=== PATIENT | male | born 1970 | race Caucasian/White ===

== ENCOUNTER 2023-04-28 21:52 | Outpatient (OUT) | payer OTHER, SELFPAY | END 2023-04-28 21:53 | PROVIDERS: PCP Nurse Practitioner; Visit Provider Nurse Practitioner | DX: G47.33 Obstructive sleep apnea (adult) (pediatric) (principal); R06.83 Snoring; E66.9 Obesity, unspecified; Z68.36 Body mass index [BMI] 36.0-36.9, adult; I49.9 Cardiac arrhythmia, unspecified; I11.0 Hypertensive heart disease with heart failure; I50.23 Acute on chronic systolic (congestive) heart failure; F17.210 Nicotine dependence, cigarettes, uncomplicated; I48.91 Unspecified atrial fibrillation; I43 Cardiomyopathy in diseases classified elsewhere | CPT/HCPCS: 95810 ==

== ENCOUNTER 2023-05-11 07:02 | Outpatient (OUT) | payer OTHER, SELFPAY ==
--- NOTE | 2023-05-11 07:43 | CA_ITS ---
Patient: GENOVEVA DENT Exam Date: 05/11/2023 : 1970 Gender:M Ordering : FABIAN BURNETTE Admission #: [id number] Family : Order #: [id number] CLICK HERE TO VIEW EXAM ECHOCARDIOGRAM REPORT PROCEDURE: CA ECHO LIMITED INDICATIONS: Acute on chronic heart failure, Paroxysmal Afib COMPARISON: None. DESCRIPTION: Limited ECHOCARDIOGRAM Real-time transthoracic echocardiography with 2D and M-mode performed. QUALITY: Technical quality was good. LEFT VENTRICLE: Normal chamber size. Normal left ventricular wall thickness. LV EF: Global left ventricular systolic function is moderately decreased. Visual estimation of left ventricular ejection fraction is 30-35%. Global hypokinesis with regional variability. LEFT ATRIUM: Severe dilatation. RIGHT ATRIUM: Mild dilatation. RIGHT VENTRICLE: Normal chamber size. Normal right ventricular systolic function. TRICUSPID VALVE: Normal mobility and thickness. MITRAL VALVE: Normal mobility and thickness. There is no mitral annular calcification. AORTIC VALVE: Normal trileaflet appearance. No visible sclerosis. Normal leaflet mobility. AORTIC ROOT: Normal diameter and appearance. PULMONIC VALVE: Normal thickness and mobility. PERICARDIUM: No evidence of pericardial effusion. IVC: Collapses with inspirations. Normal size CONCLUSION: Global left ventricular systolic function is moderately reduced; visually estimated ejection fraction is 30 to 35%. Biatrial enlargement. The right ventricle is normal in size and systolic function. A limited echocardiogram was performed. Adult Echocardiography Procedure Report Left Ventricle LVEDD (3.7 - 5.6 cm): 5.11 cm LVESD (2.2 - 4.0 cm): 3.98 cm LVIVS thickness (0.6 - 1.2 cm): 0.93 cm LVPW thickness (0.5 - 1.0 cm): 0.89 cm LVOT Diameter 2.32 cm Left Ventricular Ejection Fraction: 31.13 % Left Atrium LA Volume Index (2D A2C): 56.45 ml/m2 Left Atrium Systolic Dimension: 5.04 cm Mitral Valve Right Ventricle RV Internal Diastolic Dimension: 3.88 cm Aorta AO Root Diam: 3.57 cm Ascending Ao Diam: 3.04 cm Aortic Valve Tricuspid Valve Pulmonic Valve Right Atrium Right Atrium Systolic Pressure: 50.11 ml, 50.11 ml Dictated by: Franny Louise M.D. on 05/13/2023 at 14:23 Approved by: Franny Louise M.D. on 05/13/2023 at 14:25
== END 2023-05-11 07:03 ==
LOC: CARD 07:02
PROVIDERS: PCP Nurse Practitioner; Visit Provider Nurse Practitioner
DX: I50.23 Acute on chronic systolic (congestive) heart failure (principal); I48.0 Paroxysmal atrial fibrillation
CPT/HCPCS: 93308

== ENCOUNTER 2023-05-20 14:51 | Outpatient (OUT) | payer OTHER, SELFPAY ==
[2023-05-20 16:11] LABS: Anion Gap 12.7; Calcium 9.2 mg/dL (8.5-10.1); Chloride 105 mmol/L (98-107); Estimated GFR (African America >60 (>=60); Estimated GFR (Non-African Ame >60 (>=60); Glucose 87 mg/dL (74-106); Potassium 3.7 mmol/L (3.5-5.1); Sodium 140 mmol/L (136-145)
== END 2023-05-20 14:52 | disposition home or self-care (01) ==
LOC: LAB 14:53
PROVIDERS: Visit Provider Nurse Practitioner
DX: I48.0 Paroxysmal atrial fibrillation (principal); I43 Cardiomyopathy in diseases classified elsewhere; I11.0 Hypertensive heart disease with heart failure; I50.23 Acute on chronic systolic (congestive) heart failure
CPT/HCPCS: 36415; 80048

== ENCOUNTER 2023-07-02 15:16 | Outpatient (OUT) | payer OTHER, SELFPAY ==
[2023-07-02 15:59] LABS: Anion Gap 12.4; BUN Creatinine Ratio 11.4; Calcium 8.5 mg/dL (8.5-10.1); Chloride 103 mmol/L (98-107); Estimated GFR (African America >60 (>=60); Estimated GFR (Non-African Ame >60 (>=60); Glucose 125 mg/dL (74-106); Potassium 3.4 mmol/L (3.5-5.1); Sodium 139 mmol/L (136-145)
== END 2023-07-02 15:17 | disposition home or self-care (01) ==
LOC: LAB 15:17
PROVIDERS: Nurse Practitioner; Visit Provider Nurse Practitioner
DX: I48.0 Paroxysmal atrial fibrillation (principal); I50.23 Acute on chronic systolic (congestive) heart failure; I11.0 Hypertensive heart disease with heart failure; I43 Cardiomyopathy in diseases classified elsewhere
CPT/HCPCS: 36415; 80048

== ENCOUNTER 2023-07-28 14:14 | Outpatient (OUT) | payer OTHER, SELFPAY ==
[2023-07-28 14:39] LABS: Basophils Absolute Auto 0.1 10^3/uL (0.0-0.1); Basophils Percent Auto 0.7 % (0.2-2.0); Eosinophils Absolute Auto 0.4 10^3/uL (0.0-0.7); Eosinophils Percent Auto 5.2 % (0.9-7.0); Hematocrit 51.2 % (42.0-54.0); Immature Granulocytes Abs Auto 0.04 10^3/uL (0.00-0.03); Immature Granulocytes Pct Auto 0.6 % (0.0-0.5); Lymphocytes Absolute Auto 1.9 10^3/uL (1.2-3.8); Lymphocytes Percent Auto 27.7 % (20.5-60.0); Mean Corpuscular HGB Conc 33.2 g/dL (29.9-35.2); Mean Corpuscular Hemoglobin 30.2 pg (25.9-34.0); Mean Corpuscular Volume 91.1 fL (80.0-94.0); Mean Platelet Volume 9.7 fL (9.5-13.5); Monocytes Absolute Auto 0.6 10^3/uL (0.3-0.8); Monocytes Percent Auto 9.3 % (1.7-12.0); Neutrophils Absolute Auto 3.8 10^3/uL (1.4-6.5); Neutrophils Percent Auto 56.5 % (43.0-75.0); Platelet Count 149 10^3/uL (150-450); Red Blood Count 5.62 10^6/uL (4.70-6.10); Red Cell Distribution Width 13.7 % (11.0-15.0); White Blood Count 6.7 10^3/uL (4.0-11.0)
[2023-07-28 15:05] LABS: Anion Gap 14.5; BUN Creatinine Ratio 19.5; Calcium 9.1 mg/dL (8.5-10.1); Carbon Dioxide 24.7 mmol/L (21.0-32.0); Chloride 105 mmol/L (98-107); Estimated GFR (African America >60 (>=60); Estimated GFR (Non-African Ame >60 (>=60); Glucose 88 mg/dL (74-106); Potassium 4.2 mmol/L (3.5-5.1); Sodium 140 mmol/L (136-145)
== END 2023-07-28 14:15 | disposition home or self-care (01) ==
LOC: LAB 14:16
PROVIDERS: Visit Provider Internal Medicine Cardiovascular Disease
DX: I48.0 Paroxysmal atrial fibrillation (principal)
CPT/HCPCS: 36415; 80048; 85025

== ENCOUNTER 2023-11-03 20:52 | Outpatient (OUT) | payer OTHER, SELFPAY | END 2023-11-03 20:53 | disposition home or self-care (01) | LOC: SLEEP 20:52 | PROVIDERS: PCP Nurse Practitioner; Visit Provider Nurse Practitioner | DX: G47.33 Obstructive sleep apnea (adult) (pediatric) (principal) | CPT/HCPCS: 95811 ==

== ENCOUNTER 2024-06-04 09:25 | Outpatient (OUT) | payer OTHER, SELFPAY ==
[2024-06-04 10:23] LABS: Basophils Percent Auto 0.5 % (0.2-2.0); Eosinophils Absolute Auto 0.3 10^3/uL (0.0-0.7); Eosinophils Percent Auto 4.9 % (0.9-7.0); Hematocrit 50.2 % (42.0-54.0); Hemoglobin 16.8 g/dL (14.0-18.0); Immature Granulocytes Abs Auto 0.02 10^3/uL (0.00-0.03); Immature Granulocytes Pct Auto 0.3 % (0.0-0.5); Lymphocytes Absolute Auto 1.5 10^3/uL (1.2-3.8); Lymphocytes Percent Auto 25.7 % (20.5-60.0); Mean Corpuscular HGB Conc 33.5 g/dL (29.9-35.2); Mean Corpuscular Hemoglobin 30.6 pg (25.9-34.0); Mean Corpuscular Volume 91.4 fL (80.0-94.0); Mean Platelet Volume 10.4 fL (9.5-13.5); Monocytes Absolute Auto 0.8 10^3/uL (0.3-0.8); Monocytes Percent Auto 13.6 % (1.7-12.0); Neutrophils Absolute Auto 3.3 10^3/uL (1.4-6.5); Platelet Count 144 10^3/uL (150-450); Red Blood Count 5.49 10^6/uL (4.70-6.10); Red Cell Distribution Width 12.7 % (11.0-15.0)
[2024-06-04 10:56] LABS: Alanine Aminotransferase 37 U/L (16-63); Albumin Level 3.4 g/dL (3.4-5.0); Alkaline Phosphatase 97 U/L (46-116); Anion Gap 10.8; Aspartate Amino Transferase 13 U/L (15-37); BUN Creatinine Ratio 20.5; Bilirubin Total 0.4 mg/dL (0.2-1.0); Calcium 8.5 mg/dL (8.5-10.1); Carbon Dioxide 27.2 mmol/L (21.0-32.0); Chloride 108 mmol/L (98-107); Chol HDL Ratio 2.8; Cholesterol 97 mg/dL (<=200); Estimated GFR (African America >60 (>=60); Estimated GFR (Non-African Ame >60 (>=60); Globulin 3.4 g/dL; Glucose 95 mg/dL (74-106); HDL Cholesterol 35 mg/dL (40-60); Sodium 142 mmol/L (136-145); Total Protein 6.8 g/dL (6.4-8.2); Triglycerides 50 mg/dL (<=150)
== END 2024-06-04 09:26 | disposition home or self-care (01) ==
LOC: LAB 09:28
PROVIDERS: PCP Nurse Practitioner; Visit Provider Nurse Practitioner
DX: I11.0 Hypertensive heart disease with heart failure (principal); I43 Cardiomyopathy in diseases classified elsewhere; I48.0 Paroxysmal atrial fibrillation
CPT/HCPCS: 36415; 80053; 80061; 85025

== ENCOUNTER 2024-10-12 10:17 | Emergency (ER) | payer BC, SELFPAY ==
[2024-10-12 10:25] VITALS: BP 135/97; PULSE 82; TEMP 36.4; O2SAT 100; BMI 34.9
--- OUTSIDE RECORDS SUMMARY | 2024-10-12 10:50 | XMS_ITS | CCD ---
Author Organization [facility] Care Team Providers Care Multi Share Program Coordinator Name Role Phone REQUEST, DR NONE LISTED Primary Care Unavaila ble KARL ., KHUSHI Admitting Unavailable KARL ., KHUSHI Attending Unavailable ZIEBER, DR PRATIBHA Watson Consulting Unavailable KATKO, BRIGITTE Lopez Consulting Unavailable KARL ., KHUSHI Consulting Unavailable BARAZI, KEILY Consulting Unavailable RASTEGAR, ADELAIDA Consulting Unavailable VASILE, FABIAN Admitting Unavailable VASILE, FABIAN Attending Unavailable REQUEST, NONE LISTED Primary Care Unavaila ble VASILE, FABIAN Admitting Unavailable VASILE, FABIAN Attending Unavailable REQUEST, NONE LISTED Primary Care Unavaila ble VASILE, FABIAN Consulting Unavailable JOHN, WALTER Referring Unavailable JOHN, WALTER Referring Unavailable JOHN, WALTER Referring Unavailable JOHN, WALTER Referring Unavailable BARAZI, KEILY Attending Unavailable JOHN, WALTER Attending Unavailable JOHN, WALTER Attending Unavailable JOHN, WALTER Admitting Unavailable JOHN, WALTER Attending Unavailable BARAZI, KEILY Attending Unavailable VASILE, FABIAN Attending Unavailable Problems Problem Classification Problem Date Documented Da te Episodic/Chronic Cardiac dysrhythmias (9 sources) Unspecified atrial fibrillation; Translations: [Paroxysmal atrial fibrillation] Onset: 03-17-2023 Chronic Congestive heart failure; nonhypertensive (7 sources) Acute on chronic systolic (congestive) heart failure; Translations: [Acute systolic (congestive) heart failure] Onset: 03-23-2023 Chronic Hypertension with complications and secondary hypertension (3 sources) Hypertensive heart disease with heart failure; Translations: [HTN HEART DISEASE W/HEART FAIL] Onset: 03-23-2023 Chronic Other nutritional; endocrine; and metabolic disorders (1 source) Morbid (severe) obesity due to excess calories; Translations: [MORBID SEVERE OBES D/T EXCESS KEE] Onset: 03-23-2023 Chronic Other nutritional; endocrine; and metabolic disorders (1 source) Body mass index (BMI) 33.0-33.9, adult; Translations: [BODY MASS INDEX BMI 33.0-33.9 ADULT] Onset: 03-23-2023 Chronic Tawny-; endo-; and myocarditis; cardiomyopathy (except that caused by tuberculosis or sexually transmitted disease) (2 sources) Cardiomyopathy in diseases classified elsewhere; Translations: [Cardiomyopathy in diseases classified elsewhere] Onset: 03-30-2023 Chronic Regional enteritis and ulcerative colitis (1 source) Ulcerative colitis, unspecified, without complications; Translations: [ULCERATIVE COLITIS UNS W/O COMP] Onset: 03-23-2023 Chronic Substance-related disorders (1 source) Nicotine dependence, cigarettes, uncomplicated; Translations: [NICOTINE DEPEND CIGARETTES UNCOMP] Onset: 03-23-2023 Chronic Unclassified (2 sources) Longstanding persistent atrial fibrillation; Translations: [Longstanding persistent atrial fibrillation] Onset: 05-21-2023 Results Test Name Value Interpretation Reference Range Facility Office Visiton 06-03-2024 Follow-up visit [id number] Aiden Dent [facility] 1970 [facility] Provider Department Center 06/03/2024 FABIAN DOMINIQUE KASHIF [facility] Family History Problem Relation Age of Onset Hypertension Mother Diabetes Mother Coronary artery disease Father Cancer Father Family Status - Relation Status Age at Mother Father Level of Service:16973 OK OFFICE/OUTPATIENT ESTABLISHED LOW MDM 20 MIN Normal [facility] 36on 11-30-2023 36 I would have him restart coreg, if he did not tolerate the 6.25mg BID dose previously we can start 3.125mg Bid instead. diastolic consistently elevated, his goal BP is 130/80 or less Normal [facility] Office Visiton 11-10-2023 Follow-up visit [id number] Aiden Dent [facility] 1970 Date Provider Department Center 11/10/2023 WALTER GUZMAN KASHIF [facility] Family History Problem Relation Age of Onset Hypertension Mother Diabetes Mother Coronary artery disease Father Cancer Father Family Status - Relation Status Age at Mother Father Level of Service:42637 [place] OFFICE/OUTPATIENT ESTABLISHED LOW MDM 20 MIN Normal [facility] Office Visiton 09-09-2023 Follow-up visit [id number] Aiden Dent [facility] 1970 [facility] Provider Department Center 09/09/2023 KEILY TOBAR KASHIF [facility] Family History Problem Relation Age of Onset Hypertension Mother Diabetes Mother Coronary artery disease Father Cancer Father Family Status - Relation Status Age at Mother Father Level of Service:31917 [place] OFFICE/OUTPATIENT ESTABLISHED MOD MDM 30-39 MIN Normal [facility] Telephoneon 09-03-2023 Telephone [id number] Aiden Dent ul M 1970 M Date Provider Department Center 09/03/2023 155Tex-TITO MIKALA [facility] Family History Problem Relation Age of Onset Hypertension Mother Diabetes Mother Coronary artery disease Father Cancer Father Family Status - Relation Status Age at Mother Father Normal [facility] Telephoneon 08-20-2023 Telephone [id number] Aiden Dent ul M 1970 M Date Provider Department Center 08/20/2023 1557-HISAguilar MIKALA [facility] Family History Problem Relation Age of Onset Hypertension Mother Diabetes Mother Coronary artery disease Father Cancer Father Family Status - Relation Status Age at Mother Father Normal [facility] HPon 08-12-2023 HP H&P reviewed. The patient was examined and there are no changes to the H&P. Afib ablation would require placement of multiple catheters in the heart under moderate sedation which will include diagnostic catheters, ICE catheters and ablation catheters. The risk of the procedures can be described as minor and major minor complications being discomfort in the groin area, bleeding, infection and vascular complications at this fistula formation, pseudoaneurysm, nerve injury. Major complications would include catheter induced cardiac perforation leading to tamponade/ pericardial effusion which may or may not require surgical intervention. Other complications are phrenic nerve injury leading to paralysis, thromboembolism including pulmonary and systemic event leading to stroke or endorgan injury or . There could be a possibility of catheter induced valve entrapment which may require surgical intervention and valve replacement. Given that these procedures are performed under x-ray, they could be acute or long-term side effects from radiation. Gven the comorbidities, the likelihood of attaining sinus rhythm would be ~75% and reiterated the importance of weight loss and an exercise regimen as well as treatment of sleep apnea which would be beneficial in long-term maintenance of sinus rhythm based on data from LEGACY and CARDIOFIT trials. Overall the risk of these complications ranged anywhere from 1-5%. Patient verbalized understanding and have agreed to proceed with the procedure. Normal [facility] NURSNOTEon 08-12-2023 NURSNOTE Ekg is at bedside Normal [facility] POCT GLUCOSE METER UNSOLICIT ED RESULTSon 08-12-2023 Glucose [Mass/Vol] 96 mg/dL Normal 70-105 [facility] Comment on above: Order Comment: Waive d Testing in the ED is performed under the ED CLIA certificate #[id number]. Result Comment: ltol les Performed By: #### L [id number] ####[facility] (BEAKER)[address] [place] [address] PROTIME-INRon 08-12-2023 INR IN PPP BY COAGULATION ASSAY 0.92 Normal 0.90-1.10 [facility] Comment on above: Result Comment: ACCC P RECOMMENDED INR FOR WARFARIN THERAPY CONDITION INR PROPHYLAXIS OF VENOUS THROMBOSIS 2-3 (HIGH-RISK SURGERY) TREATMENT OF VENOUS THROMBOSIS 2-3 TREATMENT OF PULMONARY EMBOLISM 2-3 PREVENTION OF SYSTEMIC EMBOLISM: 2-3 ACUTE MYOCARDIAL INFARCTION TISSUE HEART VALVES VALVULAR HEART DISEASE ATRIAL FIBRILLATION RECURRENT SYSTEMIC EMBOLISM MECHANICAL HEART VALVE 2.5-3.5 FROM: ORAL ANTICOAGULANTS. MECHANISM OF ACTION, CLINICAL EFFECTIVENESS, AND OPTIMAL THERAPEUTIC RANGE. CHEST 1995;108:231S-246S. Performed By: #### L [id number] ####[facility] (BEAKER)[address] [place] [address] PROTHROMBIN TIME (PT) IN PPP BY COAGULATION ASSAY 12.4 Seconds Normal 12.3-14.8 [facility] Comment on above: Performed By: #### L [id number] ####[facility] (YARELI)[address] [place] [address] [id number] 08-06-2023 [id number] ARRIVAL TIME 0700 MEDICATIONS TO TAKE DAY OF SURGERY WITH SIP OF WATER AMIODARONE CARVEDILOL HOLD ELIQUIS X 48 HRS STOP 08/10 IF YOU ARE GOING HOME AFTER YOUR SURGERY OR PROCEDURE, FOR YOUR SAFETY, YOUR SURGERY WILL BE CANCELLED IF BOTH OF THE FOLLOWING ARE NOT AVAILABLE: An adult limousine driver over the age of 18, that can receive information about your care after surgery, and drive you home. A responsible adult to stay with you for 24 hours in case of an emergency. Can be same as above. The highest risk of complications is within the first 24 hours after sedation/anesthesia. Nothing to eat or drink after midnight the night before surgery. This includes gum, candy, mints, and lozenges. No alcohol, marijuana, or tobacco products including vaping for 24 hours. Please brush your teeth; don't swallow the toothpaste or water. If you use dentures, wear them but do not use paste. Please leave any other removable dental hardware at home. Do not put in contact lenses. Do not wear perfume, make-up, nail setswana, or lotions on the day of your surgery or procedure. Follow skin-prep/wipe instructions as below if required. Bring with you: *Insurance card *Photo ID *Medication list *Co-pay for visit/prescriptions If applicable: *Rescue inhalers *Green bracelet from lab *CPAP or BiPAP machine, if staying overnight *Any braces, splints, or equipment ordered preoperatively *Remote controls for implanted devices Leave at home: *Purse/Wallet/Le- unless needed for co-pay *Cell phone (can leave with family/friend or place in locker if needed) *Jewelry (including piercings and wedding bands) *If not possible, ask the person who is waiting with you to keep them Children under the age of 12 will not be allowed into patient care areas. We will call you between 3pm and 4pm the day before your surgery to give you an arrival time. If you do not receive this call, have any questions, or need to make any changes, please call [phone]. Notify your surgeon if you develop any illness such as a cold, cough, fever, sore throat or vomiting between now and your surgery. Thank you for entrusting us with your care. [facility] Surgical Services Team Normal [facility] CTA CHEST W AND/OR WO IV CON TRASTon 07-30-2023 CTA CHEST W AND/OR WO IV CONTRAST CTA CHEST W AND/OR WO IV CONTRAST 07/30/2023 1:50 PM CLINICAL INDICATIONS: Paroxysmal atrial fibrillation. Preablation procedure. PROTOCOL: Gated cardiac CTA CONTRAST: 100 mL Omnipaque 350. TECHNIQUE: Multidetector CT axial slices of the chest were obtained with IV contrast. Multiplanar reformats were performed and viewed on a separate workstation and reviewed to further define anatomy and possible pathology. All CT scans at this facility use dose modulation, iterative reconstruction, and/or weight based dosing when appropriate to reduce radiation dose to as low as reasonably achievable. COMPARISON: None. FINDINGS: Lower neck: no supraclavicle adenopathy. Vessels: Pulmonary arteries appeared grossly unremarkable. No atherosclerotic changes in the aorta. and coronary arteries. Mediastinum and Татьяна: Within normal limits. Heart: Normal size. No pericardial effusion. Airways: Within normal limits Lungs: Mild dependent atelectasis. Small pneumatocele in the right middle lobe. Pleura: Within normal limits. Chest Wall: Within normal limits. Upper Abdomen: Small cysts are seen in the dome of the left lobe of the liver. Clips at the gallbladder fossa from prior cholecystectomy. Bones: Mild bony spurring in the lower thoracic spine suggesting mild spondylosis. 3-D volume rendered images of the left atrium, left atrial appendage and pulmonary veins are obtained in various projections. There is normal size and configuration of the left atrium. The left atrium measures 7 x 3.6 cm in maximum transverse dimensions. The ostium of the left atrial appendage is 1.2 cm in diameter. The left atrial appendage is 3.2 cm in length. No filling defects are seen. The left superior pulmonary vein measures 1.1 cm in diameter and first branch is approximately 3.4 cm from the ostium. The left inferior pulmonary vein ostium is 1.3 cm in diameter. The first branch is approximately 2.8 cm from the ostium. The right superior pulmonary vein ostium is 1.6 cm in diameter. The first branch is approximately 3.2 cm from the ostium. The right inferior pulmonary vein is approximately 2 cm in diameter and first branch is approximately 2.4 cm from the ostium. The contrast-filled esophagus is seen immediately posterior to the left atrium and adjacent to the ostium of the left inferior pulmonary vein. IMPRESSION: Mild dependent atelectasis and small pneumatocele in the right middle lobe. Evidence of prior cholecystectomy. 6 small cyst at the dome of the left lobe of the liver. Normal left atrium size and configuration with 2 pulmonary veins seen on each side with the measurements described above. No filling defects in the left atrial appendage. The esophagus in close proximity to the ostium of the left inferior pulmonary vein. Electronically signed: Elaine Tan. Normal [facility] Comment on above: Order Comment: Joy granados schedule prior to Aug 12. Would like to coordinate with TTE if possible 07-28-2023 29 Addended by: KEILY XIE on: 08/09/2023 11:41 PM Modules accepted: Level of Service [facility] 07-28-2023 [facility] Electrophysiology Consult Note Reason for visit: Afib/ CMP, AF ablation HP and consent HPI: Walter Dent is a 52 y.o. year old with past medical history of Afib with Atrial fibrillation with associated cardiomyopathy which has improved to.30 to 35%, with LA severely dilated and right atrium mildly dilated. 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 Patient is asymptomatic and denies chest pain, shortness of breath, palpitations, lightheadedness, dizziness PMH: smoker, drinker, AF, HTN, HFrEF Medications: amiodarone 200mg daily, eliquis 5mg bid, coreg 6.25mg bid, lisinopril 2.5mg daily, aldactone 25mg daily PMH: Past Medical History: Diagnosis Date Abnormal ECG Arrhythmia Atrial fibrillation (CMS/HCC) CHF (congestive heart failure) (CMS/HCC) PSH: Past Surgical History: Procedure Laterality Date CHOLECYSTECTOMY HERNIA REPAIR KNEE SURGERY SH: Social Determinants of Health Tobacco Use: High Risk (07/07/2023) Patient History Smoking Tobacco Use: Every Day Smokeless Tobacco Use: Former Passive Exposure: Not on file Alcohol Use: Not on file Financial Resource Strain: Not on file Food Insecurity: Not on file Transportation Needs: Not on file Physical Activity: Not on file Stress: Not on file Social Connections: Not on file Intimate Partner Violence: Not on file Depression: Not on file Housing Stability: Not on file Allergies: No Known Allergies Weight: 108kg Visit Vitals BP 120/86 (BP Location: Left arm, Patient Position: Sitting) Pulse 74 Ht 1.702 m (5' 7 ) Wt 108 kg (238 lb) SpO2 95% BMI 37.28 kg/m??? Smoking Status Every Day BSA 2.26 m??? Meds: Current Outpatient Medications on File Prior to Visit Medication Sig Dispense Refill amiodarone (Pacerone) 200 mg tablet Take 2 tablets (400 mg) by mouth in the morning and at bedtime for 14 days, THEN 1 tablet (200 mg) in the morning. (Patient taking differently: Take 1 tablet in the morning, and 1 tablet in the evening.) 236 tablet 0 carvedilol (Coreg) 6.25 mg tablet Take 1 tablet (6.25 mg) by mouth with breakfast and with evening meal. 180 tablet 3 Eliquis 5 mg tablet Take 1 tablet (5 mg) by mouth in the morning and at bedtime. 180 tablet 3 empagliflozin (Jardiance) 10 mg Take 1 tablet (10 mg) by mouth in the morning. 90 tablet 3 lisinopril 2.5 mg tablet Take 1 tablet (2.5 mg) by mouth in the morning. 90 tablet 3 spironolactone (Aldactone) 25 mg tablet Take 1 tablet (25 mg) by mouth in the morning. 90 tablet 3 No current facility-administered medications on file prior to visit. ROS: Review of Systems HENT: Positive for congestion. Respiratory: Positive for shortness of breath. Neurological: Positive for dizziness and light-headedness. All other systems reviewed and are negative. Physical Exam: Constitutional General Appearance: well-nourished, well-developed, appears stated age Level of Distress: comfortable Psychiatric Mental Status: alert, normal affect Orientation: oriented to time, place, and person Insight: good judgement Eyes Lids and Conjunctivae: non-injected, no xanthelasma ENMT Ears: no lesions on external ear Nose: no lesions on external nose Oropharynx: no cyanosis, no pallor Neck Neck: supple, trachea midline Carotid Arteries: bilateral normal upstroke, no bruits Jugular Veins: normal jugular venous pressure Thyroid: not enlarged Lungs Respiratory Effort: unlabored Chest Exam: normal curvature, no thoracic deformity Auscultation: clear, no wheezing, no rales, no rhonchi Cardiovascular Rate And Rhythm: regular Heart Sounds: normal S1, normal s2, no gallop Systolic Murmur: not heard Diastolic Murmur: not heard Extremities: no cyanosis, no edema, no peripheral signs of emboli Peripheral Pulses Radial Pulse: normal Abdomen Inspection and Palpation: soft, non distended, no bruit, non tender Musculoskeletal Inspection: no joint swelling Neurologic Gait: normal gait Skin Inspection and Palpation: warm and dry Nails: no clubbing Labs: @LABRESULTS@ No results found for: CHOLESTEROL TOTAL, HDL, LDL CALC, LDL DIRECT, TRIGLYCERIDES, TSH, T3 TOTAL, T4 TOTAL, THYROID PEROXIDASE AB, BNP, BNP, BNP EKG: Encounter Date: 04/09/23 ECG 12 lead Result Value Ventricular Rate 84 Atrial Rate 84 OK Interval 230 QRS DURATION 96 QT Interval 378 QTC CALCULATION(BAZETT) 446 P Rialto 39 R-Rialto -3 T Wave Rialto 15 Impression Sinus rhythm with 1st degree A-V block with occasional Premature ventricular complexes and Premature atrial complexes Otherwise normal ECG When com (more content not included)... Normal [facility] Office Visiton 07-28-2023 Follow-up visit [id number] Aiden Dent [facility] 1970 M Date Provider Department Center 07/28/2023 1596-KEILY XIE [facility]ARD [facility] Family History Problem Relation Age of Onset Hypertension Mother Diabetes Mother Coronary artery disease Father Cancer Father Family Status - Relation Status Age at Mother Father Level of Service:[id number] OK OFFICE/OUTPATIENT ESTABLISHED HIGH MDM 40-54 MIN Normal [facility] Prep for Procedureon 023 Prep for Procedure [id number] Aiden Dent [facility] 1970 M Date Provider Department Center 07/08/2023 1987-OSKAR AMBROCIO [facility] Family History Problem Relation Age of Onset Hypertension Mother Diabetes Mother Coronary artery disease Father Cancer Father Family Status - Relation Status Age at Mother Father Normal [facility] Office Visiton 07-07-2023 Follow-up visit [id number] Aiden Dent ul M 1970 M Date Provider Department Center 07/07/2023 WALTER GUZMAN [facility] Family History Problem Relation Age of Onset Hypertension Mother Diabetes Mother Coronary artery disease Father Cancer Father Family Status - Relation Status Age at Mother Father Level of Service:08105 OK OFFICE/OUTPATIENT NEW HIGH MDM 60-74 MINUTES Reason for Visit and Comments: Follow-up [[id number]] Normal [facility] CBC AUTO DIFFon 03-31-2023 BASO # 0.1 103/ul Normal 0.0-0.1 [facility] Comment on above: Performed By: #### B MP #### [facility] [address] [address] [address] Dana Levine Basophils/100 WBC (Bld) 0.6 % Normal 0.2-2.0 [facility] Comment on above: Performed By: #### B MP #### [facility] [address] [address] [address] Dana Levine EO # 0.2 103/ul Normal 0.0-0.7 [facility] Comment on above: Performed By: #### B MP #### [facility] [address] [address] [address] Dana Levine Eosinophils/100 WBC (Bld) 2.9 % Normal 0.9-7.0 [facility] Comment on above: Performed By: #### B MP #### [facility] [address] [address] [address] Dana Levine Erythrocyte distribution width (RBC) [Ratio] 12.5 % Normal 11.0-15.0 [facility] Comment on above: Performed By: #### B MP #### [facility] [address] [address] [address] Dana Levine Hematocrit (Bld) [Volume fraction] 52.8 % Normal 42.0-54.0 [facility] Comment on above: Performed By: #### B MP #### [facility] [address] [place] [address] Dr. Dana Levine Hemoglobin (Bld) [Mass/Vol] 17.7 g/dL Normal 14.0-18.0 [facility] Comment on above: Performed By: #### B MP #### [facility] [address] [place] [address] Dr. Dana Levine IG # 0.02 10e3/ul Normal 0.00-0.03 [facility] Comment on above: Performed By: #### B MP #### [facility] [address] [place] [address] Dr. Dana Levine IG % 0.2 % Normal 0.0-0.5 [facility] Comment on above: Performed By: #### B MP #### [facility] [address] [place] [address] Dr. Dana Levine LYMPH # 2.5 103/ul Normal 1.2-3.8 [facility] Comment on above: Performed By: #### B MP #### [facility] [address] [place] [address] Dr. Dana Levine Lymphocytes/100 WBC (Bld) 31.5 % Normal 20.5-60.0 [facility] Comment on above: Performed By: #### B MP #### [facility] [address] [place] [address] Dr. Dana Levine MANUAL DIFF REQ NO Normal [facility] Comment on above: Performed By: #### B MP #### [facility] [address] [place] [address] Dr. Dana Levine MCH (RBC) [Entitic mass] 28.9 pg Normal 25.9-34.0 [facility] Comment on above: Performed By: #### B MP #### [facility] [address] [place] [address] Dr. Dana Levine MCHC (RBC) [Mass/Vol] 33.5 g/dL Normal 29.9-35.2 [facility] Comment on above: Performed By: #### B MP #### [facility] [address] [address] [address] Dana Levine MCV (RBC) [Entitic vol] 86.1 fL Normal 80.0-94.0 [facility] Comment on above: Performed By: #### B MP #### [facility] [address] [address] [address] Dana Levine MONO # 0.7 103/ul Normal 0.3-0.8 [facility] Comment on above: Performed By: #### B MP #### [facility] [address] [address] [address] Dana Levine Monocytes/100 WBC (Bld) 8.2 % Normal 1.7-12.0 [facility] Comment on above: Performed By: #### B MP #### [facility] [address] [place] [address] Dr. Dana Levine NEUT # 4.6 103/ul Normal 1.4-6.5 [facility] Comment on above: Performed By: #### B MP #### [facility] [address] [place] [address] Dr. Dana Levine Neutrophils/100 WBC (Bld) 56.6 % Normal 43.0-75.0 [facility] Comment on above: Performed By: #### B MP #### [facility] [address] [place] [address] Dr. aDna Levine Platelet mean volume (Bld) [Entitic vol] 9.6 fL Normal 9.5-13.5 [facility] Comment on above: Performed By: #### B MP #### [facility] [address] [place] [address] Dr. Dana Levine PLT 186 103/ul Normal 150-450 [facility] Comment on above: Performed By: #### B MP #### [facility] [address] [place] [address] Dr. Dana Levine RBC 6.13 106/ul Critically high 4.70-6.10 [facility] Comment on above: Performed By: #### B MP #### [facility] [address] [place] [address] Dr. Dana Levine WBC 8.1 103/ul Normal 4.0-11.0 [facility] Comment on above: Performed By: #### B MP #### [facility] [address] [address] [address] Dana Levine PROF CHEM 8 (BAS METB)on Anion gap [Moles/Vol] 11.7 mmol/L Normal [facility] Comment on above: Performed By: #### B MP #### [facility] [address] [place] [address] Dr. Dana Levine Calcium [Mass/Vol] 9.3 mg/dL Normal 8.5-10.1 [facility] Comment on above: Performed By: #### B MP #### [facility] [address] [place] [address] Dr. Dana Levine Chloride [Moles/Vol] 105 mmol/L Normal 98-107 [facility] Comment on above: Performed By: #### B MP #### [facility] [address] [place] [address] Dr. Dana Levine CO2 [Moles/Vol] 28.4 mmol/L Normal 21.0-32.0 [facility] Comment on above: Performed By: #### B MP #### [facility] [address] [place] [address] Dr. Dana Levine Creatinine [Mass/Vol] 1.05 mg/dL Normal 0.70-1.30 [facility] Comment on above: Performed By: #### B MP #### [facility] [address] [place] [address] Dr. Dana Levine EGFR-AF MALAWIAN >60 Normal >=60 [facility] Comment on above: Performed By: #### B MP #### [facility] [address] [place] [address] Dr. Dana Levine EGFR-NON AF MALAWIAN >60 Normal >=60 [facility] Comment on above: Performed By: #### B MP #### [facility] [address] [place] [address] Dr. Dana Levine Glucose [Mass/Vol] 101 mg/dL Normal 74-106 [facility] Comment on above: Performed By: #### B MP #### [facility] [address] [place] [address] Dr. Dana Levine Potassium [Moles/Vol] 4.1 mmol/L Normal 3.5-5.1 [facility] Comment on above: Performed By: #### B MP #### [facility] [address] [place] [address] Dr. Dana Levine Sodium [Moles/Vol] 141 mmol/L Normal 136-145 [facility] Comment on above: Performed By: #### B MP #### [facility] [address] [place] [address] Dr. Dana Levine Urea nitrogen [Mass/Vol] 19.0 mg/dL Critically high 7.0-18.0 [facility] Comment on above: Performed By: #### B MP #### [facility] [address] [place] [address] Dr. Dana Levine Urea nitrogen/Creatinine [Mass ratio] 18.1 mg/mg Normal [facility] Comment on above: Performed By: #### B MP #### [facility] [address] [place] [address] Dr. Dana Levine CBC AUTO DIFFon 03-17-2023 BASO # 0.0 103/ul Normal 0.0-0.1 [facility] Comment on above: Performed By: #### B MP #### [facility] [address] [place] [address] Dr. Dana Levine Basophils/100 WBC (Bld) 0.4 % Normal 0.2-2.0 [facility] Comment on above: Performed By: #### B MP #### [facility] [address] [place] [address] Dr. Dana Levine EO # 0.2 103/ul Normal 0.0-0.7 [facility] Comment on above: Performed By: #### B MP #### [facility] [address] [place] [address] Dr. Dana Levine Eosinophils/100 WBC (Bld) 3.5 % Normal 0.9-7.0 [facility] Comment on above: Performed By: #### B MP #### [facility] [address] [place] [address] Dr. Dana Levine Erythrocyte distribution width (RBC) [Ratio] 13.5 % Normal 11.0-15.0 [facility] Comment on above: Performed By: #### B MP #### [facility] [address] [place] [address] Dr. Dana Levine Hematocrit (Bld) [Volume fraction] 47.9 % Normal 42.0-54.0 [facility] Comment on above: Performed By: #### B MP #### [facility] [address] [place] [address] Dr. Dana Levine Hemoglobin (Bld) [Mass/Vol] 15.6 g/dL Normal 14.0-18.0 [facility] Comment on above: Performed By: #### B MP #### [facility] [address] [place] [address] Dr. Dana Levine IG # 0.03 10e3/ul Normal 0.00-0.03 [facility] Comment on above: Performed By: #### B MP #### [facility] [address] [place] [address] Dr. Dana Levine IG % 0.4 % Normal 0.0-0.5 [facility] Comment on above: Performed By: #### B MP #### [facility] [address] [place] [address] Dr. Dana Levine LYMPH # 1.8 103/ul Normal 1.2-3.8 [facility] Comment on above: Performed By: #### B MP #### [facility] [address] [place] [address] Dr. Dana Levine Lymphocytes/100 WBC (Bld) 26.2 % Normal 20.5-60.0 [facility] Comment on above: Performed By: #### B MP #### [facility] [address] [place] [address] Dr. Dana Levine MANUAL DIFF REQ NO Normal [facility] Comment on above: Performed By: #### B MP #### [facility] [address] [address] [address] Dana Levine MCH (RBC) [Entitic mass] 28.8 pg Normal 25.9-34.0 [facility] Comment on above: Performed By: #### B MP #### [facility] [address] [address] [address] Dana Levine MCHC (RBC) [Mass/Vol] 32.6 g/dL Normal 29.9-35.2 [facility] Comment on above: Performed By: #### B MP #### [facility] [address] [address] [address] Dana Levine MCV (RBC) [Entitic vol] 88.4 fL Normal 80.0-94.0 [facility] Comment on above: Performed By: #### B MP #### [facility] [address] [place] [address] Dr. Dana Levine MONO # 0.6 103/ul Normal 0.3-0.8 [facility] Comment on above: Performed By: #### B MP #### [facility] [address] [place] [address] Dr. Dana Levine Monocytes/100 WBC (Bld) 8.7 % Normal 1.7-12.0 [facility] Comment on above: Performed By: #### B MP #### [facility] [address] [address] [address] Dana Levine NEUT # 4.2 103/ul Normal 1.4-6.5 [facility] Comment on above: Performed By: #### B MP #### [facility] [address] [place] [address] Dr. Dana Levine Neutrophils/100 WBC (Bld) 60.8 % Normal 43.0-75.0 [facility] Comment on above: Performed By: #### B MP #### [facility] [address] [place] [address] Dr. Dana Levine Platelet mean volume (Bld) [Entitic vol] 10.7 fL Normal 9.5-13.5 [facility] Comment on above: Performed By: #### B MP #### [facility] [address] [place], [place] [address] Dr. Dana Levine PLT 145 103/ul Critically low 150-450 [facility] Comment on above: Performed By: #### B MP #### [facility] [address] [place], [place] [address] Dr. Dana Levine RBC 5.42 106/ul Normal 4.70-6.10 [facility] Comment on above: Performed By: #### B MP #### [facility] [address] [place], [place] [address] Dr. Dana Levine WBC 6.9 103/ul Normal 4.0-11.0 [facility] Comment on above: Performed By: #### B MP #### [facility] [address] [place], [place] [address] Dr. Dana Levine ECHOCARDIO M/2D COMPLETEon 0 03-17-2023 ECHOCARDIO M/2D COMPLETE Patient: WALTRE DENT Exam Date: 03/17/2023 : 1970 Gender:M Ordering : KHUSHI BARAJAS . Admission #: [id number] Family : DR PRATIBHA WARNER M.D. Order #: [id number] CLICK HERE TO VIEW EXAM ECHOCARDIOGRAM REPORT PROCEDURE: CARDIO PULMONARY ECHOCARDIO M/2D COMP INDICATIONS: Atrial fibrillation, smoker, pulmonary edema COMPARISON: None. DESCRIPTION: COMPLETE ECHOCARDIOGRAM Real-time transthoracic echocardiography with 2D, M-mode, spectral and color flow Doppler performed. QUALITY: Technical quality was good. LEFT VENTRICLE: Normal chamber size. Proximal septal hypertrophy (sigmoid septum). LV EF: Mild to moderately reduced left ventricular ejection fraction, (35-40%). Global hypokinesis. DIASTOLIC: Not adequately assessed due to heart rhythm. ATRIAL SEPTUM: Inadequately seen. LEFT ATRIUM: Severe dilatation. RIGHT ATRIUM: Severe dilatation. RIGHT VENTRICLE: Mild dilatation. Systolic function appears reduced. TRICUSPID VALVE: Normal mobility and thickness. Doppler studies reveal mildly (35-45) elevated right sided pressures. RVSP 44 mmHg MITRAL VALVE: Normal mobility and thickness. No evidence of mitral valve stenosis. There is no mitral annular calcification. Moderate mitral regurgitation. AORTIC VALVE: Normal trileaflet appearance. Thickened aortic valve. Normal leaflet mobility. No evidence of aortic valve stenosis. No aortic regurgitation. AORTIC ROOT: Normal diameter and appearance. PULMONIC VALVE: Normal thickness and mobility. No stenosis. Mild regurgitation. PERICARDIUM: No evidence of pericardial effusion. IVC: IVC is dilated (2.7 cm) with no collapse. CONCLUSION: Global left ventricular systolic function is mild to moderately reduced; visually estimated ejection fraction is 35 to 40%. Global hypokinesis. Severe biatrial enlargement. The right ventricle is mildly dilated with reduced systolic function. Mildly elevated right-sided pressures. Moderate mitral regurgitation. Mild pulmonic regurgitation. Adult Echocardiography Procedure Report Left Ventricle LVEDD (3.7 - 5.6 cm): 5.00 cm LVESD (2.2 - 4.0 cm): 3.79 cm LVIVS thickness (0.6 - 1.2 cm): 1.65 cm LVPW thickness (0.5 - 1.0 cm): 1.11 cm LVOT Max Gradient: 1.22 mm[Hg], 0.91 mm[Hg] Peak Velocity (LVOT): 0.55 m/s, 0.48 m/s LVOT Diameter 2.65 cm Left Atrium LA Volume Index (2D A2C): 146.21 ml, 146.21 ml Left Atrium Systolic Dimension: 5.31 cm Mitral Valve Mitral Valve E-Wave Peak Velocity: 0.75 m/s, 0.95 m/s Right Ventricle Aorta AO Root Diam: 4.04 cm Aortic Valve AoV Area (Peak Joss): 2.79 cm2, 3.00 cm2 Peak Velocity(Antegrade Flow): 1.01 m/s Peak Gradient(Antegrade Flow): 4.11 mm[Hg] Tricuspid Valve Peak Velocity (Regurgitant Flow): 2.69 m/s Pulmonic Valve Peak Velocity: 0.64 m/s, 0.53 m/s, 0.78 m/s Peak Gradient: 1.63 mm[Hg], 1.12 mm[Hg], 2.44 mm[Hg] Right Atrium Right Atrium Systolic Pressure: 68.95 ml, 68.95 ml Dictated by: Franny Louise M.D. on 03/18/2023 at 10:16 Approved by: Franny Louise M.D. on 03/18/2023 at 10:24 Normal [facility] GLYCOHEMOGLOBIN A1Con 2022 ADA RECOMMENDATION SEE BELOW Normal [facility] [place] [facility] Comment on above: Result Comment: ADA RECOMMENDED LIMIT 4.0 - 6.0 ADA THERAPEUTIC TARGET < 7.0 ACTION SUGGESTED > 7.0 Performed By: #### B MP #### [facility] [address] [address] [address] Dana Levine Glucose [Mass/Vol] 114 mg/dL Normal [facility] Comment on above: Performed By: #### B MP #### [facility] [address] [address] [address] Dana Levine HbA1c (Bld) [Mass fraction] 5.6 % Normal 4.5-6.2 [facility] Comment on above: Performed By: #### B MP #### [facility] [address] [place] [address] Dr. Dana Levine LIPID PROFILEon 03-17-2023 CHOL-HDL RATIO NORM SEE BELOW Normal [facility] Comment on above: Result Comment: 3.3 - 4.4 LOW RISK 4.4 - 7.1 AVERAGE RISK 7.1 - 11.0 MODERATE RISK >11.0 HIGH RISK Performed By: #### L IPID #### [facility] [address] [place] [address] Dr. Dana Levine Cholesterol [Mass/Vol] 102 mg/dL Normal <=200 [facility] Comment on above: Performed By: #### L IPID #### [facility] [address] [place] [address] Dr. Dana Levine Cholesterol in HDL [Mass/Vol] 33 mg/dL Critically low 40-60 [facility] Comment on above: Performed By: #### L IPID #### [facility] [address] [place] [address] Dr. Dana Levine Cholesterol in LDL [Mass/Vol] 62.0 mg/dL Normal [facility] Comment on above: Performed By: #### L IPID #### [facility] [address] [place] [address] Dr. Dana Levine Cholesterol.total/Ch olesterol in HDL [Mass ratio] 3.1 {ratio} Normal [facility] Comment on above: Performed By: #### L IPID #### [facility] [address] [address] [address] Dana Levine HDL NORMAL > or = 60 mg/dl - LO W CARDIOVASCULAR RISK <40 mg/dl - HIGH CARDIOVASCULAR RISK Normal [facility] Comment on above: Performed By: #### L IPID #### [facility] [address] [address] [address] Dana Levine LDL CALC NORMAL SEE BELOW Normal [facility] Comment on above: Result Comment: <100 mg/dl OPTIMAL 100 - 129 mg/dl NEAR OR ABOVE OPTIMAL 130 - 159 mg/dl BORDERLINE HIGH 160 - 189 mg/dl HIGH >190 mg/dl VERY HIGH Performed By: #### L IPID #### [facility] [address] [place] [address] Dr. Dana Levine Triglyceride [Mass/Vol] 35 mg/dL Normal <=150 [facility] Comment on above: Performed By: #### L IPID #### [facility] [address] [address] [address] Dana Levine VLDL CALC 7.0 mg/dL Normal [facility] Comment on above: Performed By: #### L IPID #### [facility] [address] [address] [address] Dana Levine PROF 14(COMP METB)on 023 Albumin [Mass/Vol] 3.4 g/dL Normal 3.4-5.0 [facility] Comment on above: Performed By: #### C MP #### [facility] [address] [address] [address] Dana Levine Albumin/Globulin [Mass ratio] 1.1 {ratio} Normal [facility] Comment on above: Performed By: #### C MP #### [facility] [address] [address] [address] Dana Levine ALP [Catalytic activity/Vol] 60 U/L Normal 46-116 [facility] Comment on above: Performed By: #### C MP #### [facility] [address] [address] [address] Dana Levine ALT [Catalytic activity/Vol] 50 U/L Normal 16-63 [facility] Comment on above: Performed By: #### C MP #### [facility] [address] [address] [address] Dana Levine Anion gap [Moles/Vol] 10.7 mmol/L Normal [facility] Comment on above: Performed By: #### C MP #### [facility] [address] [address] [address] Dana Levine AST [Catalytic activity/Vol] 21 U/L Normal 15-37 [facility] Comment on above: Performed By: #### C MP #### [facility] [address] [place] [address] Dr. Dana Levine Bilirubin [Mass/Vol] 1.6 mg/dL Critically high 0.2-1.0 [facility] Comment on above: Performed By: #### C MP #### [facility] [address] [place] [address] Dr. Dana Levine Calcium [Mass/Vol] 8.7 mg/dL Normal 8.5-10.1 [facility] Comment on above: Performed By: #### C MP #### [facility] [address] [place] [address] Dr. Dana Levine Chloride [Moles/Vol] 104 mmol/L Normal 98-107 [facility] Comment on above: Performed By: #### C MP #### [facility] [address] [address] [address] Dana Levine CO2 [Moles/Vol] 27.0 mmol/L Normal 21.0-32.0 [facility] Comment on above: Performed By: #### C MP #### [facility] [address] [place] [address] Dr. Dana Levine Creatinine [Mass/Vol] 0.88 mg/dL Normal 0.70-1.30 [facility] Comment on above: Performed By: #### C MP #### [facility] [address] [place] [address] Dr. Dana Levine EGFR-AF MALAWIAN >60 Normal >=60 [facility] Comment on above: Performed By: #### C MP #### [facility] [address] [address] [address] Dana Levine EGFR-NON AF MALAWIAN >60 Normal >=60 [facility] Comment on above: Performed By: #### C MP #### [facility] [address] [address] [address] Dana Levine Globulin (S) [Mass/Vol] 3.1 g/dL Normal [facility] Comment on above: Performed By: #### C MP #### [facility] [address] [address] [address] Dana Levine Glucose [Mass/Vol] 91 mg/dL Normal 74-106 [facility] Comment on above: Performed By: #### C MP #### [facility] [address] [address] [address] Dana Levine Potassium [Moles/Vol] 3.7 mmol/L Normal 3.5-5.1 [facility] Comment on above: Performed By: #### C MP #### [facility] [address] [place] [address] Dr. Dana Levine Protein [Mass/Vol] 6.5 g/dL Normal 6.4-8.2 [facility] Comment on above: Performed By: #### C MP #### [facility] [address] [address] [address] Dana Levine Sodium [Moles/Vol] 138 mmol/L Normal 136-145 [facility] Comment on above: Performed By: #### C MP #### [facility] [address] [address] [address] Dana Levine Urea nitrogen [Mass/Vol] 12.0 mg/dL Normal 7.0-18.0 [facility] Comment on above: Performed By: #### C MP #### [facility] [address] [address] [address] Dana Levine Urea nitrogen/Creatinine [Mass ratio] 13.6 mg/mg Normal [facility] Comment on above: Performed By: #### C MP #### [facility] [address] [place] [address] Dr. Dana Levine BNPon 03-16-2023 Natriuretic peptide B (Bld) [Mass/Vol] 1191.0 pg/mL Critically high <=900.0 [facility] Comment on above: Performed By: #### B CHIEF POWER DISPATCHER, MG #### [facility] [address] [place] [address] Dr. Dana Levine CBC AUTO DIFFon 03-16-2023 BASO # 0.0 103/ul Normal 0.0-0.1 [facility] Comment on above: Performed By: #### C BC #### [facility] [address] [place] [address] Dr. Dana Levine Basophils/100 WBC (Bld) 0.5 % Normal 0.2-2.0 [facility] Comment on above: Performed By: #### C BC #### [facility] [address] [place] [address] Dr. Dana Levine EO # 0.2 103/ul Normal 0.0-0.7 [facility] Comment on above: Performed By: #### C BC #### [facility] [address] [place] [address] Dr. Dana Levine Eosinophils/100 WBC (Bld) 2.5 % Normal 0.9-7.0 [facility] Comment on above: Performed By: #### C BC #### [facility] [address] [place] [address] Dr. Dana Levine Erythrocyte distribution width (RBC) [Ratio] 13.3 % Normal 11.0-15.0 [facility] Comment on above: Performed By: #### C BC #### [facility] [address] [place] [address] Dr. Dana Levine Hematocrit (Bld) [Volume fraction] 50.7 % Normal 42.0-54.0 [facility] Comment on above: Performed By: #### C BC #### [facility] [address] [place] [address] Dr. Dana Levine Hemoglobin (Bld) [Mass/Vol] 16.6 g/dL Normal 14.0-18.0 [facility] Comment on above: Performed By: #### C BC #### [facility] [address] [place] [address] Dr. Dana Levine IG # 0.04 10e3/ul Critically high 0.00-0.03 [facility] Comment on above: Performed By: #### C BC #### [facility] [address] [place] [address] Dr. Dana Levine IG % 0.5 % Normal 0.0-0.5 [facility] Comment on above: Performed By: #### C BC #### [facility] [address] [place] [address] Dr. Dana Levine LYMPH # 2.0 103/ul Normal 1.2-3.8 [facility] Comment on above: Performed By: #### C BC #### [facility] [address] [place] [address] Dr. Dana Levine Lymphocytes/100 WBC (Bld) 27.3 % Normal 20.5-60.0 [facility] Comment on above: Performed By: #### C BC #### [facility] [address] [place] [address] Dr. Dana Levine MANUAL DIFF REQ NO Normal [facility] Comment on above: Performed By: #### C BC #### [facility] [address] [place] [address] Dr. Dana Levine MCH (RBC) [Entitic mass] 28.6 pg Normal 25.9-34.0 [facility] Comment on above: Performed By: #### C BC #### [facility] [address] [place] [address] Dr. Dana Levine MCHC (RBC) [Mass/Vol] 32.7 g/dL Normal 29.9-35.2 [facility] Comment on above: Performed By: #### C BC #### [facility] [address] [place] [address] Dr. Dana Levine MCV (RBC) [Entitic vol] 87.4 fL Normal 80.0-94.0 [facility] Comment on above: Performed By: #### C BC #### [facility] [address] [place] [address] Dr. Dana Levine MONO # 0.6 103/ul Normal 0.3-0.8 [facility] Comment on above: Performed By: #### C BC #### [facility] [address] [place] [address] Dr. Dana Levine Monocytes/100 WBC (Bld) 8.0 % Normal 1.7-12.0 [facility] Comment on above: Performed By: #### C BC #### [facility] [address] [place] [address] Dr. Dana Levine NEUT # 4.6 103/ul Normal 1.4-6.5 [facility] Comment on above: Performed By: #### C BC #### [facility] [address] [place] [address] Dr. Dana Levine Neutrophils/100 WBC (Bld) 61.2 % Normal 43.0-75.0 [facility] Comment on above: Performed By: #### C BC #### [facility] [address] [place] [address] Dr. Dana Levine Platelet mean volume (Bld) [Entitic vol] 10.4 fL Normal 9.5-13.5 [facility] Comment on above: Performed By: #### C BC #### [facility] [address] [place] [address] Dr. Dana Levine PLT 151 103/ul Normal 150-450 [facility] Comment on above: Performed By: #### C BC #### [facility] [address] [place] [address] Dr. Dana Levine RBC 5.80 106/ul Normal 4.70-6.10 [facility] Comment on above: Performed By: #### C BC #### [facility] [address] [place] [address] Dr. Dana Levine WBC 7.5 103/ul Normal 4.0-11.0 [facility] Comment on above: Performed By: #### C BC #### [facility] [address] [place], [place] [address] Dr. Dana Levine CTA CHEST WO W CONon 023 CTA CHEST WO W CON EXAMINATION: CTA [facility] ST WO W CON HISTORY: SHORTNESS OF BREATH COMPARISON: None. TECHNIQUE: CT chest with intravenous contrast was performed with timing for the evaluation for pulmonary arteries. Multiplanar reformats were performed. MIP (maximum intensity projection) images or 3D post processing was performed. Dose reduction techniques were achieved by using automated exposure control and/or adjustment of mA and/or kV according to patient size and/or use of iterative reconstruction technique. FINDINGS: Lungs: No consolidation, mass, or effusion. Airways: Normal. Mediastinum: No adenopathy. Aorta: No aneurysm. Cardiac: Mild cardiomegaly. No pericardial effusion. Pulmonary vasculature: Diagnostic opacification of pulmonary arteries without evidence of pulmonary embolus. Normal morphology. Bones: No acute bony abnormality. Axilla: No adenopathy. Thyroid gland: No abnormality demonstrated on provided imaging. Soft tissues: Unremarkable. Upper abdomen: Unremarkable. Additional findings: None. IMPRESSION: No evidence of acute pulmonary embolus or acute intrathoracic abnormality. Mild cardiomegaly. Electronically authenticated by: ADELAIDA DURAN Date: 2023-03-16 17:27 Normal [facility] D-DIMERon 03-16-2023 D-DIMER 0.77 mg/L FEU Critically high <=0.59 [facility] Comment on above: Performed By: #### B MP #### [facility] [address] [address] [address] Dana Levine D-DIMER COMMENTS SEE BELOW Normal [facility] Comment on above: Result Comment: Incr eases in D-Dimer concentration observed with thromboembolic events can be variable due to localization, size, and age of the thrombus. Therefore, a thromboembolic event cannot be diagnosed with certainty on the basis of the reference range. D-Dimers may also be elevated for a variety of disorders including: advanced age, , coronary disease, cancer, liver disease, infection, inflammation, hematoma, DIC, trauma, post-surgery, diabetes, thrombolytic or anticoagulant therapy, stress, and generalized hospitalization. Performed By: #### B MP #### [facility] [address] [address] [address] Dana Levine DRUG SCREEN RAPID (URINE)on 03-16-2023 AMP Negative Normal NEGATIVE [facility] Comment on above: Performed By: #### D RUGRPD #### [facility] [address] [address] [address] Dana Levine BAR Negative Normal NEGATIVE [facility] Comment on above: Performed By: #### D RUGRPD #### [facility] [address] [address] [address] Dana Levine BUP Negative Normal NEGATIVE [facility] Comment on above: Performed By: #### D RUGRPD #### [facility] [address] [place] [address] Dr. Dana Levine BZO Negative Normal NEGATIVE [facility] Comment on above: Performed By: #### D RUGRPD #### [facility] [address] [place] [address] Dr. Dana Levine MERCEDES Negative Normal NEGATIVE [facility] Comment on above: Performed By: #### D RUGRPD #### [facility] [address] [address] [address] Dana Levine CUT-OFFS SEE BELOW Normal [facility] Comment on above: Result Comment: AMP (Amphetamine): 500ng/mL, BAR (Barbituates): 200 ng/mL, BZO (Benzodiazepines): 150 ng/mL, BUP (Buprenorphine): 10 ng/mL, MERCEDES (Cocaine): 150 ng/mL, mAMP (Methamphetamine): 500 ng/mL, MTD (Methadone): 200 ng/mL, OPI (Opiates): 100 ng/mL, OXY (Oxycodone): 100 ng/mL, PCP (Phencyclidine): 25 ng/mL, PPX (Propoxyphene): 300 ng/mL, THC (Cannabinoids): 50 ng/mL, TCA (Trycyclic Antidepressants): 300 ng/mL Performed By: #### D RUGRPD #### [facility] [address] [place] [address] Dr. Dana Levine DRUG CUT HEADER DRUG CLASS TEST SYST EM CUT-OFF CONCENTRATIONS ARE FOLLOWS: Normal [facility] Comment on above: Performed By: #### D RUGRPD #### [facility] [address] [address] [address] Dana Levine mAMP Negative Normal NEGATIVE [facility] Comment on above: Performed By: #### D RUGRPD #### [facility] [address] [place] [address] Dr. Dana Levine MTD Negative Normal NEGATIVE [facility] Comment on above: Performed By: #### D RUGRPD #### [facility] [address] [place] [address] Dr. Dana Levine OPI Negative Normal NEGATIVE [facility] Comment on above: Performed By: #### D RUGRPD #### [facility] [address] [place] [address] Dr. Dana Levine OXY Negative Normal NEGATIVE [facility] Comment on above: Performed By: #### D RUGRPD #### [facility] [address] [place] [address] Dr. Dana Levine PCP Negative Normal NEGATIVE [facility] Comment on above: Performed By: #### D RUGRPD #### [facility] [address] [place] [address] Dr. Dana Levine PPX Negative Normal NEGATIVE [facility] Comment on above: Performed By: #### D RUGRPD #### [facility] [address] [place] [address] Dr. Dana Levine TCA Negative Normal NEGATIVE [facility] Comment on above: Performed By: #### D RUGRPD #### [facility] [address] [place] [address] Dr. Dana Levine THC Negative Normal NEGATIVE [facility] Comment on above: Performed By: #### D RUGRPD #### [facility] [address] [place] [address] Dr. Dana Levine GROUP A STREP CULTUREon 02-22 S. pyogenes Ag Ql (Unsp spec) Culture Observations: NEGATIVE FOR GROUP A STREPTOCOCCUS. Normal [facility] Comment on above: Performed By: #### S SCRN, GRASTCX #### [facility] [address] [address] [address] Dana Levine MAGNESIUMon 03-16-2023 Magnesium [Mass/Vol] 2.0 mg/dL Normal 1.8-2.4 [facility] Comment on above: Performed By: #### B CHIEF POWER DISPATCHER, MG #### [facility] [address] [address] [address] Dana Levine PROF CHEM 8 (BAS METB)on Anion gap [Moles/Vol] 9.3 mmol/L Normal [facility] Comment on above: Performed By: #### B MP #### [facility] [address] [address] [address] Dana Levine Calcium [Mass/Vol] 9.2 mg/dL Normal 8.5-10.1 [facility] Comment on above: Performed By: #### B MP #### [facility] [address] [address] [address] Dana Levine Chloride [Moles/Vol] 106 mmol/L Normal 98-107 [facility] Comment on above: Performed By: #### B MP #### [facility] [address] [address] [address] Dana Levine CO2 [Moles/Vol] 25.8 mmol/L Normal 21.0-32.0 [facility] Comment on above: Performed By: #### B MP #### [facility] [address] [address] [address] Dana Levine Creatinine [Mass/Vol] 0.88 mg/dL Normal 0.70-1.30 [facility] Comment on above: Performed By: #### B MP #### [facility] [address] [address] [address] Dana Levine EGFR-AF MALAWIAN >60 Normal >=60 [facility] Comment on above: Performed By: #### B MP #### [facility] [address] [address] [address] Dana Levine EGFR-NON AF MALAWIAN >60 Normal >=60 [facility] Comment on above: Performed By: #### B MP #### [facility] [address] [address] [address] Dana Levine Glucose [Mass/Vol] 99 mg/dL Normal 74-106 [facility] Comment on above: Performed By: #### B MP #### [facility] [address] [address] [address] Dana Levine Potassium [Moles/Vol] 4.1 mmol/L Normal 3.5-5.1 [facility] Comment on above: Performed By: #### B MP #### [facility] [address] [address] [address] Dana Levine Sodium [Moles/Vol] 137 mmol/L Normal 136-145 [facility] Comment on above: Performed By: #### B MP #### [facility] [address] [place] [address] Dr. Dana Levine Urea nitrogen [Mass/Vol] 15.0 mg/dL Normal 7.0-18.0 [facility] Comment on above: Performed By: #### B MP #### [facility] [address] [place] [address] Dr. Dana Levine Urea nitrogen/Creatinine [Mass ratio] 17.0 mg/mg Normal [facility] Comment on above: Performed By: #### B MP #### [facility] [address] [place] [address] Dr. Dana Levine STREPT SCREENon 03-16-2023 STREP SCREEN A Negative Normal NEGATIVE [facility] Comment on above: Performed By: #### S SCRN, GRASTCX #### [facility] [address] [address] [address] Dana Levine TROPONIN, HIGH SENSITIVITYon 03-16-2023 HSTROP 14.9 pg/mL Normal 4.0-76.1 [facility] Comment on above: Result Comment: CUT- OFF POINTS HAVE BEEN ESTABLISHED BASED ON THE FOURTH UNIVERSAL DEFINITIONS OF MYOCARDIAL INFARCTION. THE UPPER REFERENCE LIMIT (URL) OF TROPONIN, DEFINED THE 99TH PERCENTILE OF cTnI DISTRIBUTION IN A REFERENCE POPULATION, HAS BEEN CONFIRMED THE DECISION THRESHOLD FOR DC DIAGNOSIS. Performed By: #### B MP #### [facility] [address] [address] [address] Dana Levine TSHon 03-16-2023 TSH 2.346 uIU/mL Normal 0.358-3.740 [facility] Comment on above: Performed By: #### T #### [facility] [id number] Dana Levine XR CHEST 1 Von 03-16-2023 XR CHEST 1 V EXAMINATION: XR CHES T 1 V HISTORY: SHORTNESS OF BREATH COMPARISON: No relevant comparison available. FINDINGS: LUNGS: Mild haziness throughout the lungs and slight peripheral septal thickening. VASCULATURE: No increased pulmonary vasculature. PLEURA: No pneumothorax, effusion, or pleural thickening. CARDIAC: No cardiomegaly or cardiac silhouette abnormality. MEDIASTINUM: No visible mass or adenopathy. BONES: No fracture or visible bone lesion. OTHER: Negative. IMPRESSION: 1. Mild bilateral infiltrates suspected to represent pulmonary edema. Electronically authenticated by: PRATIBHA WARNER Date: 2023-03-16 11:29 Normal [facility] Encounters Encounter Date Encounter Type Care Provider Facility Start: 06-03-2024 End: [facility] 11-10-[facility]23 End: 11-10-2023 ambulatory [facility] Start: 09-09-2023 End: 09-09-2023 ambulatory [facility] Start: 08-12-2023 ambulatory [facility] Start: 08-12-2023 End: 08-12-2023 ambulatory [facility] Start: 07-30-2023 End: 07-30-2023 ambulatory [facility] Start: 07-28-2023 End: 07-28-2023 ambulatory [facility] Start: 07-07-2023 End: 07-07-2023 ambulatory [facility] Start: 04-28-2023 ambulatory FABIAN BURNETTE Facility:[facility] Start: 03-31-2023 End: 04-01-2023 ambulatory FABIAN VASILE Facility:[facility] Start: 03-17-2023 End: 03-17-[address] NONE LISTED REQUEST Facility:[facility] Payers Date Payer Category Payer Unknown [id number] 1970 Unknown [id number] [id number] [id number] 1970 Unknown [id number] [id number] [id number] 1972 Unknown [id number] [id number] 1957 Private Health Insurance [id number] Clinical Notes 07-07-2023 to 06-04-2024 Note Date & Type Note Facility 06-04-2024 Note Currently in SR s/p afib ablatio n [facility] 06-04-2024 Note [id number], CHF and HTN Remains in sinus rhythm per EKG today Continue eliquis anticoagulation Coreg for rate control Amiodarone Dc'd per Dr Lisa [facility] 06-03-2024 Note HTN well controlled 131/85 Continue all meds [facility] 06-03-2024 Note Heart failure is unc hanged. NYHA Class II. Continue current treatment regimen. Dietary sodium restriction. Continue current medications. Heart failure will be reassessed in 6 months. [facility] 06-03-2024 Note [facility] CARDIOLOGY PROGR ESS NOTE HPI: Walter Dent is a 53 y.o. male here for routine F/U HPI 53 yo male presents today for routine F/U afib and chronic systolic heart failure. He is 10 mo s/p afib ablation. Denies chest pain, palpitations, and bleeding on Eliquis. Overall states he feels well, denied any activity limiting symptoms and states he has not felt any a fib since the ablation. Review of Systems Constitutional: Negative. Respiratory: Negative. Cardiovascular: Negative. Neurological: Negative. All other systems reviewed and are negative. Visit Vitals BP 131/85 Pulse 93 Wt 106 kg (233 lb) SpO2 94% BMI 36.49 kg/m??? Smoking Status Every Day BSA 2.24 m??? No Known Allergies Medications: Current Outpatient Medications on File Prior to Visit Medication Sig Dispense Refill carvedilol (Coreg) 6.25 mg tablet Take 1 tablet (6.25 mg) by mouth with breakfast and with evening meal. 180 tablet 3 lisinopril 2.5 mg tablet Take 1 tablet (2.5 mg) by mouth in the morning. 90 tablet 3 [DISCONTINUED] Eliquis 5 mg tablet Take 1 tablet (5 mg) by mouth in the morning and at bedtime. 180 tablet 3 pantoprazole (ProtoNix) 40 mg EC tablet Take 1 tablet (40 mg) by mouth before breakfast. Do not crush, chew, or split. 30 tablet 0 [DISCONTINUED] amiodarone (Pacerone) 200 mg tablet Take 1 tablet (200 mg) by mouth once daily as directed. (Patient not taking: Reported on 06/03/2024) 90 tablet 3 [DISCONTINUED] amiodarone (Pacerone) 200 mg tablet Take 1 tablet (200 mg) by mouth in the morning. (Patient not taking: Reported on 06/03/2024) 90 tablet 3 No current facility-administered medications on file prior to visit. Physical Exam: Constitutional: Appearance: Normal appearance. Without apparent distress HENT: Head: Normocephalic and atraumatic. Nose: Nose normal. Mouth/Throat: Mouth: Mucous membranes are moist. Eyes: Extraocular Movements: Extraocular movements intact. Conjunctiva/sclera: Conjunctivae normal. Neck: Vascular: No JVD. Cardiovascular: Rate and Rhythm: Normal rate and regular rhythm. Pulses: Dorsalis pedis pulses are 3 on the right side and 3on the left side. Posterior tibial pulses are 3 on the right side and 3 on the left side. Heart sounds: Normal heart sounds, S1 normal and S2 normal. Pulmonary: Effort: Pulmonary effort is normal. Breath sounds: Normal breath sounds. Abdominal: General: Bowel sounds are normal. Palpations: Abdomen is soft. Musculoskeletal: General: Normal range of motion. Cervical back: Normal range of motion. Right lower leg: No edema. Left lower leg: No edema. Skin: General: Skin is warm and dry. Capillary Refill: Capillary refill takes less than 2 seconds. Neurological: General: No focal deficit present. Mental Status: he is alert and oriented to person, place, and time. Psychiatric: Mood and Affect: Mood normal. Behavior: Behavior normal. Thought Content: Thought content normal. Judgment: Judgment normal. Labs: Script for routine annual labs given to pt Normal renal function Last lab values have been reviewed CV Testing: reviewed with pt EKG today 06/03/24 Sinus rhythm with 1st degree AV block- otherwise normal Encounter Date: 08/12/23 ECG 12 lead Result Value Ventricular Rate 75 Atrial Rate 75 OK Interval 264 QRS DURATION 106 QT Interval 434 QTC CALCULATION(BAZETT) 484 P Rialto 28 R-Rialto 7 T Wave Rialto 19 Impression Sinus rhythm with 1st degree A-V block Prolonged QT Abnormal ECG When compared with ECG of 12-AUG-2023 07:36, No significant change was found Confirmed by [place] CAUSEY, SABINA Elizalde ([id number]) on 08/12/2023 4:29:54 PM Echo: reviewed with pt 07/30/23 tte Findings Left Ventricle: The left ventricle is normal size. Global left ventricular systolic function is at lower limits of normal. The EF is 50 % visually. Left ventricular wall thickness is increased. Unable to assess diastolic dysfunction. Concentric left ventricular hypertrophy. Right Ventricle: The right ventricle is normal in size. Normal right ventricular systolic function. Unable to assess right sided pressures due to lack of measurable tricuspid regurgitation. Left Atrium: The left atrium is normal in size. Right Atrium: The right atrium is normal in size. Mitral Valve: The mitral valve is normal in mobility and thickness. Trivial mitral regurgitation. Aortic Valve: The aortic valve is normal. No aortic valve regurgitation. Tricuspid Valve: Normal tricuspid valve. No tricuspid regurgitation. Pulmonic Valve: Normal pulmonary valve. No pulmonary regurgitation. Aorta: The aortic root exhibits normal size. Great Vessels: IVC: The inferior vena cava is poorly visualized. Pericardium: No pericardial effusion. 03/2023 tte Findings Left Ventricle: The left ventricle is normal size. Global left ventricular systolic function is severely reduced. EF evaluated by visual asses (more content not included)... [facility] 11-10-2023 Note [facility] Electrophysiology Consult Note Reason for visit: Afib/ CMP, s/p AF PVI + CTI 08/12/23 11/10/23 Patient here for 2 mo follow up afib and chronic systolic heart failure. He is 3 mo s/p afib ablation. Denies chest pain, palpitations, and bleeding on Eliquis. GUILLERMINA still untreated. continues take amiodarone 200 mg, once daily. reviewed his echocardiogram from 07/30/2023 which showed EF 50% which means patient is no longer a candidate for ICD and he cant return to work unless his GUILLERMINA is corrected. Awaiting his CPAP. ECG 11/10/23 SR witrh 1st degree AVB 09/06/2023 sinus rhythm ECHO 07/30/23 07/28/23 HPI: Walter Dent is a 52 y.o. year old with past medical history of Afib with Atrial fibrillation with associated cardiomyopathy which has improved to.30 to 35%, with LA severely dilated and right atrium mildly dilated. 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 Patient is asymptomatic and denies chest pain, shortness of breath, palpitations, lightheadedness, dizziness PMH: smoker, drinker, AF, HTN, HFrEF Medications: amiodarone 200mg daily, eliquis 5mg bid, coreg 6.25mg bid, lisinopril 2.5mg daily, aldactone 25mg daily PMH: Past Medical History: Diagnosis Date Abnormal ECG Arrhythmia Atrial fibrillation (CMS/HCC) Cardiomyopathy (CMS/HCC) CHF (congestive heart failure) (CMS/HCC) Sleep apnea PSH: Past Surgical History: Procedure Laterality Date COLONOSCOPY HERNIA REPAIR KNEE SURGERY SH: Social Determinants of Health Tobacco Use: High Risk (08/12/2023) Patient History Smoking Tobacco Use: Every Day Smokeless Tobacco Use: Former Passive Exposure: Not on file Alcohol Use: Not on file Financial Resource Strain: Not on file Food Insecurity: Not on file Transportation Needs: Not on file Physical Activity: Not on file Stress: Not on file Social Connections: Not on file Intimate Partner Violence: Not on file Depression: Not on file Housing Stability: Not on file Allergies: No Known Allergies Weight: 105kg Visit Vitals BP 124/84 (BP Location: Left arm, Patient Position: Sitting) Pulse 82 Ht 1.702 m (5' 7 ) Wt 105 kg (231 lb) SpO2 95% BMI 36.18 kg/m??? Smoking Status Every Day BSA 2.23 m??? Meds: Current Outpatient Medications on File Prior to Visit Medication Sig Dispense Refill amiodarone (Pacerone) 200 mg tablet Take 1 tablet (200 mg) by mouth once daily as directed. 90 tablet 3 carvedilol (Coreg) 6.25 mg tablet Take 1 tablet (6.25 mg) by mouth with breakfast and with evening meal. 180 tablet 3 Eliquis 5 mg tablet Take 1 tablet (5 mg) by mouth in the morning and at bedtime. 180 tablet 3 lisinopril 2.5 mg tablet Take 1 tablet (2.5 mg) by mouth in the morning. 90 tablet 3 amiodarone (Pacerone) 200 mg tablet Take 1 tablet (200 mg) by mouth in the morning. 30 tablet 5 pantoprazole (ProtoNix) 40 mg EC tablet Take 1 tablet (40 mg) by mouth before breakfast. Do not crush, chew, or split. 30 tablet 0 No current facility-administered medications on file prior to visit. ROS: Review of Systems Cardiovascular: Positive for dyspnea on exertion (unchanged). All other systems reviewed and are negative. Physical Exam: Constitutional General Appearance: well-nourished, well-developed, appears stated age Level of Distress: comfortable Psychiatric Mental Status: alert, normal affect Orientation: oriented to time, place, and person Insight: good judgement Eyes Lids and Conjunctivae: non-injected, no xanthelasma ENMT Ears: no lesions on external ear Nose: no lesions on external nose Oropharynx: no cyanosis, no pallor Neck Neck: supple, trachea midline Carotid Arteries: bilateral normal upstroke, no bruits Jugular Veins: normal jugular venous pressure Thyroid: not enlarged Lungs Respiratory Effort: unlabored Chest Exam: normal curvature, no thoracic deformity Auscultation: clear, no wheezing, no rales, no rhonchi Cardiovascular Rate And Rhythm: regular Heart Sounds: normal S1, normal s2, no gallop Systolic Murmur: not heard Diastolic Murmur: not heard Extremities: no cyanosis, no edema, no peripheral signs of emboli Peripheral Pulses Radial Pulse: normal Abdomen Inspection and Palpation: soft, non distended, no bruit, non tender Musculoskeletal Inspection: no joint swelling Neurologic Gait: normal gait Skin Inspection and Palpation: warm and dry Nails: no clubbing Labs: @LABRESULTS@ No results found for: CHOLESTEROL TOTAL , HDL , LDL CALC , LDL DIRECT , TRIGLYCERIDES , TSH , T3 TOTAL , T4 TOTAL , THYROID PEROXIDASE AB , BNP EKG: Encounter Adin (more content not included)... [facility] 11-10-2023 Note Patient here for 2 m o follow up afib and chronic systolic heart failure. He is 3 mo s/p afib ablation. Denies chest pain, palpitations, and bleeding on Eliquis. GUILLERMINA still untreated. Review of Systems Cardiovascular: Positive for dyspnea on exertion (unchanged). All other systems reviewed and are negative. [facility] 09-09-2023 Note Patient here for fol low up afib ablation on 08/[address] Lisa. Still denies chest pain, palpitations, and bleeding on Eliquis. He is taking amiodarone twice daily. Review of Systems Cardiovascular: Positive for dyspnea on exertion ( a little better ). Neurological: Positive for light-headedness (improving). All other systems reviewed and are negative. [facility] 09-09-2023 Note [facility] Electrophysiology Consult Note Reason for visit: Afib/ CMP, s/p AF PVI + CTI 08/12/23 09/09/23: Patient for 1 month follow-up s/p A-fib ablation he is almost completed all GI medications with no concerns for fistula and is eating and drinking well groin sites healed well with no concern for ecchymosis or hematoma. patient stated he did develop ecchymosis post ablation but it has resolved on its own. continues take amiodarone 200 mg, was taking twice daily we will transition him to daily reviewed his echocardiogram from 07/30/2023 which showed EF 50% which means patient is no longer a candidate for ICD and he can return to work ECG 09/06/2023 sinus rhythm 07/28/23 HPI: Walter Dent is a 52 y.o. year old with past medical history of Afib with Atrial fibrillation with associated cardiomyopathy which has improved to.30 to 35%, with LA severely dilated and right atrium mildly dilated. 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 Patient is asymptomatic and denies chest pain, shortness of breath, palpitations, lightheadedness, dizziness PMH: smoker, drinker, AF, HTN, HFrEF Medications: amiodarone 200mg daily, eliquis 5mg bid, coreg 6.25mg bid, lisinopril 2.5mg daily, aldactone 25mg daily PMH: Past Medical History: Diagnosis Date Abnormal ECG Arrhythmia Atrial fibrillation (CMS/HCC) Cardiomyopathy (CMS/HCC) CHF (congestive heart failure) (CMS/HCC) Sleep apnea PSH: Past Surgical History: Procedure Laterality Date COLONOSCOPY HERNIA REPAIR KNEE SURGERY SH: Social Determinants of Health Tobacco Use: High Risk (08/12/2023) Patient History Smoking Tobacco Use: Every Day Smokeless Tobacco Use: Former Passive Exposure: Not on file Alcohol Use: Not on file Financial Resource Strain: Not on file Food Insecurity: Not on file Transportation Needs: Not on file Physical Activity: Not on file Stress: Not on file Social Connections: Not on file Intimate Partner Violence: Not on file Depression: Not on file Housing Stability: Not on file Allergies: No Known Allergies Weight: 105kg Visit Vitals BP 127/78 (BP Location: Left arm, Patient Position: Sitting) Pulse 79 Ht 1.702 m (5' 7 ) Wt 105 kg (232 lb) SpO2 96% BMI 36.34 kg/m??? Smoking Status Every Day BSA 2.23 m??? Meds: Current Outpatient Medications on File Prior to Visit Medication Sig Dispense Refill amiodarone (Pacerone) 200 mg tablet Take 2 tablets (400 mg) by mouth in the morning and at bedtime for 14 days, THEN 1 tablet (200 mg) in the morning. (Patient taking differently: Take 1 tablet in the morning, and 1 tablet in the evening.) 236 tablet 0 carvedilol (Coreg) 6.25 mg tablet Take 1 tablet (6.25 mg) by mouth with breakfast and with evening meal. 180 tablet 3 Eliquis 5 mg tablet Take 1 tablet (5 mg) by mouth in the morning and at bedtime. 180 tablet 3 lisinopril 2.5 mg tablet Take 1 tablet (2.5 mg) by mouth in the morning. 90 tablet 3 pantoprazole (ProtoNix) 40 mg EC tablet Take 1 tablet (40 mg) by mouth before breakfast. Do not crush, chew, or split. 30 tablet 0 No current facility-administered medications on file prior to visit. ROS: Review of Systems Cardiovascular: Negative for chest pain, dyspnea on exertion, leg swelling, orthopnea, palpitations and paroxysmal nocturnal dyspnea. All other systems reviewed and are negative. Physical Exam: Constitutional General Appearance: well-nourished, well-developed, appears stated age Level of Distress: comfortable Psychiatric Mental Status: alert, normal affect Orientation: oriented to time, place, and person Insight: good judgement Eyes Lids and Conjunctivae: non-injected, no xanthelasma ENMT Ears: no lesions on external ear Nose: no lesions on external nose Oropharynx: no cyanosis, no pallor Neck Neck: supple, trachea midline Carotid Arteries: bilateral normal upstroke, no bruits Jugular Veins: normal jugular venous pressure Thyroid: not enlarged Lungs Respiratory Effort: unlabored Chest Exam: normal curvature, no thoracic deformity Auscultation: clear, no wheezing, no rales, no rhonchi Cardiovascular Rate And Rhythm: regular Heart Sounds: normal S1, normal s2, no gallop Systolic Murmur: not heard Diastolic Murmur: not heard Extremities: no cyanosis, no edema, no peripheral signs of emboli Peripheral Pulses Radial Pulse: normal Abdomen Inspection and Palpation: soft, non distended, no bruit, non tender Musculoskeletal Inspection: no joint swelling Neurologic Gait: normal gait Skin Inspection and Palpation: warm and dry Nails: no clubbing (more content not included)... 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 1 EP / [facility] HV VASCULAR LAB (Cath) Anesthesia Start: 828 Anesthesia Stop: 1116 Procedure: Ablation a-fib paroxysmal Diagnosis: Paroxysmal atrial fibrillation (CMS/HCC) (Paroxysmal atrial fibrillation (CMS/HCC) [I48.0]) Providers: Walter Lisa MD Responsible Provider: Jose Suarez MD Anesthesia Type: general ASA Status: 3 Anesthesia Type: general Vitals Value Taken Time BP 119/68 08/12/23 1140 Temp 36.4 ???C (97.5 ???F) 08/12/23 1112 Pulse 75 08/12/23 1140 Resp 16 08/12/23 1140 SpO2 96 % 08/12/23 1140 Anesthesia Post Evaluation Patient location during evaluation: PACU Patient participation: complete - patient participated Level of consciousness: awake and alert Pain score: 0 Pain management: adequate Airway patency: patent Cardiovascular status: hemodynamically stable Respiratory status: room air and nonlabored ventilation Hydration status: euvolemic Patient is hemodynamically stable and is able to be discharged from PACU per anesthesia protocol. There were no known notable events for this encounter. 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 1 EP / [facility] HVC VASCULAR LAB (Cath) Anesthesia Start: 828 Anesthesia Stop: Procedure: Ablation a-fib paroxysmal Diagnosis: Paroxysmal atrial fibrillation (CMS/HCC) (Paroxysmal atrial fibrillation (CMS/HCC) [I48.0]) Providers: Walter Lisa MD Responsible Provider: Jose Suarez MD Anesthesia Type: general ASA Status: 3 Anesthesia Post Transport Note Transport to: PACU O2 Route: room air Patient Monitor: transport monitor Transport monitor type: ECG, SpO2 and Art Line Transport: uneventful Patient condition is: stable [facility] 08-12-2023 Note ATRIAL FIBRILLATION ABLATION PROCEDURE NOTE DATE OF PROCEDURE: 08/12/2023 PERFORMING PHYSICIAN: Dr. Walter Lisa CONSENT: Patient NAME OF THE PROCEDURE: Pulmonary Vein Isolation and Comprehensive EP study. INDICATIONS FOR PROCEDURE: 1. Paroxysmal atrial fibrillation with tachymediated cardiomyopathy. FLUROSCOPY: 2.2minute/19mGy. EBL: 25cc SPECIMEN REMOVED: None PROCEDURES PERFORMED: 1. Sonosite guided venous access as noted below and images stored in PACS. 2. Comprehensive EP study and catheter ablation for persistent atrial fibrillation through the pulmonary vein isolation technique. This includes right atrial recording and pacing, His bundle recording and right ventricular recording and pacing. 3. Intracardiac EP 3D mapping. 4. Intracardiac echocardiogram 5. Left atrial and coronary sinus recording and pacing to assess ablation results. 6. Left heart pressure measurements and LV pacing and recording. 7. Induction of arrhythmia and testing of ablation results using intravenous adenosine infusion. 8. Fluroscopy. INDICATION: 52 year old with past medical history of Afib with RVR with associated cardiomyopathy which has improved to 30 to 35%, with LA severely dilated and right atrium mildly dilated. He notices a difference of being in SR vs AF. Cardioversion 04/09/2023 was without medication although was successfully converting patient to sinus rhythm but had reverted to A-fib. He was placed on Amio and on this EF improved to 50% while in SR. He opted to proceed with catheter ablation. PROCEDURE NOTE: On the day of presentation, he was noted to be in sinus rhythm following which the KEELY was deferred. Risks, benefits and alternatives of the procedure were discussed with the patient and family who agreed to proceed. Please refer to my consult note for details of the discussion and of indications. The patient was prepped and draped following which four venous access was procured on right side as noted below. Ultrasound was used to determine the course and patency of the femoral veins on both sides and they were noted to be patent and the image stored in PACS. After infiltration with 1% lidocaine, 4 venous sheaths were placed in the right as noted below and a radial arterial line was placed by Anesthesia team. RFV: 8Fx3, [employer] ThermoCool SF Bi-Directional over SL1/ Vizigo, SL1: Pentaray, CS Catheter (EZ Steer). 9F: ICE catheter, Following venous access, heparin bolus was given followed by continuous intravenous drip to target ACT around 350. An intracardiac ultrasound catheter was inserted into the right atrium to examine the right atrial anatomy, atrial septum, pulmonary vein anatomy and to monitor for pericardial effusion and guide transseptal access. The LA and RA was only moderately dilated. At baseline, there was minimal pericardial effusion and no ELISHA clot but noted a very prominent Coumadin ridge. There was a common left trunk for PV. Esophagus was mapped using the CARTOSOUND 3D mapping software and noted to be towards the middle but inferiorly towards LIPV. Transeptal access was procured with ICE guidance using a SL-1 sheath and Brian needle. LV pacing was performed and no VA conduction was seen. Followingthis, pentaray catheter was advanced and the multipolar mapping performed of the LA creating a geometry as well as bipolar voltage assessment was made. The LA was noted to be healthy. After FAM geometry was performed, a 2nd transseptal was performed with an SL1 sheath using a Brian needle. Following transseptal, the SL1 sheath was removed and Vizigo sheath was advanced over which the ablation catheter ST-SF thermocol ablation catheter was advanced. Ablation was then performed. A temperature probe was advanced to the middle of the LA to monitor the temperature. Ablation was performed using 40 palacios for 10-12s in the anterior LA and 5-8seconds in the posterior wall and roof area. After completion of the left sided WACA, no signals were noted in the LSPV or LIPV and entrance and exit block was noted. After this, I proceeded to perform ablation of the right-sided vein. Catheter movement induced atrial flutter whichself-terminated. Following right WACA, the veins were isolated. I ensured that on the anterior aspect of right WACA and in bella area, phrenic capture was ruled out before any ablation was performed. No temperature elevation was noted from a baseline of 35.5. After this, perivenous pacing was performed around each individual vein, ensuring there was isolation. Adenosine was given a 12 mg dose and AV block and hypotension was noted. No reconnection was seen. Burst pacing was done at 250ms and this induced Afib which organized into atrial flutter that was typical and terminated. I proceeded to perform CTI ablation. Using ICE, the His and IVC junctions were marked with 3D CARTO mapping software. ICE revealed a small subeustachian pouch. Rupa chow (more content not included)... [facility] 08-12-2023 Note Airway Date/Time: 08/12/2023 8:48 AM Urgency: elective General Information and Staff Patient location during procedure: OR Anesthesiologist: Jose Suarez MD Resident/PREP COOK/CAA: Monica Tucker MD Performed: resident/PREP COOK/CAA Indications and Patient Condition Indications for airway management: anesthesia Spontaneous Ventilation: absent Sedation level: deep Preoxygenated: yes Patient position: sniffing Mask difficulty assessment: 1 - vent by mask Final Airway Details Final airway type: endotracheal airway Successful airway: ETT Cuffed: yes Successful intubation technique: video laryngoscopy Facilitating devices/methods: intubating stylet Endotracheal tube insertion site: oral Blade: Diaz Blade size: #3 ETT size (mm): 7.5 Cormack-Lehane Classification: grade I - full view of glottis Placement verified by: chest auscultation and capnometry Measured from: lips ETT to lips (cm): 22 Number of attempts at approach: 1 Ventilation between attempts: none Number of other approaches attempted: 0 [facility] 08-12-2023 Note Arterial Line: Date/Time: 08/12/2023 7:55 AM An arterial line was placed Procedure performed using surface landmarks.in the pre-op for the following indication(s): continuous blood pressure monitoring and blood sampling needed. A 20 gauge (size), 4 inch (length), Angiocath (type) catheter was placed, Seldinger technique used , into the Left radial artery, secured by Tegaderm and tape (and biodesc). Events: patient tolerated procedure well with no complications. Medications Administered lidocaine (XYLOCAINE) 1 % SubQ - infiltration 1 mL - 08/12/2023 7:55:00 AM Staffing Performed: resident/PREP COOK/CAA Anesthesiologist: Jose Suarez MD Resident/PREP COOK: Monica Tucker MD Performed by: Monica Tucker MD Authorized by: Walter Lisa MD [facility] 08-12-2023 Note Patient: Walter elena Procedure Information Date/Time: 08/12/23 0830 Procedure: Ablation a-fib paroxysmal - JEREMY Location: [facility] MVA OPERATOR 1 / [facility] VASCULAR LAB (Cath) Providers: Walter Lisa MD Relevant Problems Cardio (+) Longstanding persistent atrial fibrillation (CMS/HCC) (+) Paroxysmal atrial fibrillation (CMS/HCC) Circulatory (+) Acute on chronic systolic heart failure, NYHA class 2 (CMS/HCC) Other (+) Tobacco dependence Past Medical History: Diagnosis Date ??? Abnormal ECG ??? Arrhythmia ??? Atrial fibrillation (CMS/HCC) ??? Cardiomyopathy (CMS/HCC) ??? CHF (congestive heart failure) (CMS/HCC) Past Surgical History: Procedure Laterality Date ??? CHOLECYSTECTOMY ??? HERNIA REPAIR ??? KNEE SURGERY No Known Allergies Estimated Date of Delivery: None noted. Patient Active Problem List Diagnosis ??? Atrial fibrillation with RVR (CMS/HCC) ??? Benign hypertensive cardiomyopathy with heart failure (CMS/HCC) ??? Tobacco dependence ??? Acute on chronic systolic heart failure, NYHA class 2 (CMS/HCC) ??? Longstanding persistent atrial fibrillation (CMS/HCC) ??? Paroxysmal atrial fibrillation (CMS/HCC) Scheduled Meds: Continuous Infusions: PRN Meds:. There were no vitals taken for this visit. No lab exists for component: LABALBU Clinical information reviewed: Tobacco Allergies Meds Problems Med Hx Surg Hx Fam Hx Soc Hx Physical Exam Airway Mallampati: I TM distance: >3 FB Neck ROM: full Cardiovascular Rhythm: regular Rate: normal Dental Pulmonary Breath sounds clear to auscultation Abdominal Encounter Date: 04/09/23 ECG 12 lead Result Value Ventricular Rate 84 Atrial Rate 84 OK Interval 230 QRS DURATION 96 QT Interval 378 QTC CALCULATION(BAZETT) 446 P Rialto 39 R-Rialto -3 T Wave Rialto 15 Impression Sinus rhythm with 1st degree A-V block with occasional Premature ventricular complexes and Premature atrial complexes Otherwise normal ECG When compared with ECG of 09-APR-2023 12:20, (unconfirmed) Premature atrial complexes are now Present Confirmed by Cheyenne EASLEY, L.S. (2) on 04/09/2023 2:12:55 PM Transthoracic echo (TTE) complete Result Date: 07/30/2023 1 [facility] Heart Station [address] [place] [address] [phone] (fax) Echocardiogram-[facility] Name: WALTER DENT Study Date: 07/30/2023 02:44 PM B/P: / HR: Date of : 1970 Location: [facility] Height: 67 in. Age: 52 year(s) Patient Room: Weight: 238 lb. Gender: Male Patient Status: OutPt BSA: 2.18 m2 Indication: Heart failure with reduced ef Examination: Echocardiogram (Complete), Lumason Contrast Image Quality: Poor sound transmission in apical views Patient Consent: Procedure explained to patient Conclusions Left Ventricle: The left ventricle is normal size. Global left ventricular systolic function is at lower limits of normal. The EF is 50 % visually. Left ventricular wall thickness is increased. Unable to assess diastolic dysfunction. Concentric left ventricular hypertrophy. Right Ventricle: The right ventricle is normal in size. Normal right ventricular systolic function. Unable to assess right sided pressures due to lack of measurable tricuspid regurgitation. Left Atrium: The left atrium is normal in size. Overall Conclusions: Due to suboptimal imaging, Lumason contrast was administered for better delineation of the left ventricular apex No significant valvular abnormalities Measurements Left Ventricle Label Value Normal Value LVOT PGmax 3 mmHg LVEF visual 50 % LVDd, 2D 4.96 cm (4.2cm - 5.9cm) LVDs, 2D 3.58 cm (2.1cm - 4cm) IVSd, 2D 1.2 cm (0.6cm - 1.1cm) LVPWd, 2D 1.49 cm (0.6cm - 1cm) LV Mass, 2D ASE 271.56 g LV Mass Index, 2D ASE 124.6 g/m??(50g/m?? - 102.4g/m??) RWT, MM 0.6 (0 - 0.42) LVSVI, 2D 28.4 ml/m2 Right Ventricle Label Value Normal Value RVDd, 2D 3.74 cm (1.9cm - 3.8cm) TAPSE 2.09 cm Right Atrium Label Value Normal Value RA Area 16.7 cm?? Aortic Valve Label Value Normal Value AV DVI 0.76 Mitral Valve Label Value Normal Value MV E Vmax 0.44 m/s MV A Vmax 0.57 m/s MV E/A 0.77 MV E/E' lateral 8 MV E' lateral 0.05 m/s Aorta Label Value Normal Value AoRoot, 2D 3.3 cm (1.4cm - 3.8cm) Valvular Assessment LVOT 0.7 - 1.1 m/sec Aortic Valve 1.0 - 1.7 m/sec Mitral Valve 0.6 - 1.3 m/sec Tricuspid Valve 0.3 - 0.7 m/sec Pulmonic Valve 0.6 - 0.9 m/sec Regurgitation No Trivial No No Max Velocity 0.87 m/sec 1.15 m/s 0.44 m/sec 1.02 m/s Max Gradient 5.00 mmHg 4.00 mmHg Findings Left Ventricle: The left ventricle is normal size. Global left ventricular systolic function is at lower limits of normal. The EF is 50 % visually. Left ventricular wall thickness is increased. Unable to assess diastolic dysfunction. Concentric left ventricular hypertrophy. Right Ventricle: The right ventricle is normal in size. Normal right ventriculars (more content not included)... [facility] 07-28-2023 Note [facility] Consult Note Reason for visit: Afib/ CMP, AF ablation HP and consent HPI: Walter Dent is a 52 y.o. year old with past medical history of Afib with Atrial fibrillation with associated cardiomyopathy which has improved to.30 to 35%, with LA severely dilated and right atrium mildly dilated. 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 Patient is asymptomatic and denies chest pain, shortness of breath, palpitations, lightheadedness, dizziness PMH: smoker, drinker, AF, HTN, HFrEF Medications: amiodarone 200mg daily, eliquis 5mg bid, coreg 6.25mg bid, lisinopril 2.5mg daily, aldactone 25mg daily PMH: Past Medical History: Diagnosis Date Abnormal ECG Arrhythmia Atrial fibrillation (CMS/HCC) CHF (congestive heart failure) (CMS/HCC) PSH: Past Surgical History: Procedure Laterality Date CHOLECYSTECTOMY HERNIA REPAIR KNEE SURGERY SH: Social Determinants of Health Tobacco Use: High Risk (07/07/2023) Patient History Smoking Tobacco Use: Every Day Smokeless Tobacco Use: Former Passive Exposure: Not on file Alcohol Use: Not on file Financial Resource Strain: Not on file Food Insecurity: Not on file Transportation Needs: Not on file Physical Activity: Not on file Stress: Not on file Social Connections: Not on file Intimate Partner Violence: Not on file Depression: Not on file Housing Stability: Not on file Allergies: No Known Allergies Weight: 108kg Visit Vitals BP 120/86 (BP Location: Left arm, Patient Position: Sitting) Pulse 74 Ht 1.702 m (5' 7 ) Wt 108 kg (238 lb) SpO2 95% BMI 37.28 kg/m??? Smoking Status Every Day BSA 2.26 m??? Meds: Current Outpatient Medications on File Prior to Visit Medication Sig Dispense Refill amiodarone (Pacerone) 200 mg tablet Take 2 tablets (400 mg) by mouth in the morning and at bedtime for 14 days, THEN 1 tablet (200 mg) in the morning. (Patient taking differently: Take 1 tablet in the morning, and 1 tablet in the evening.) 236 tablet 0 carvedilol (Coreg) 6.25 mg tablet Take 1 tablet (6.25 mg) by mouth with breakfast and with evening meal. 180 tablet 3 Eliquis 5 mg tablet Take 1 tablet (5 mg) by mouth in the morning and at bedtime. 180 tablet 3 empagliflozin (Jardiance) 10 mg Take 1 tablet (10 mg) by mouth in the morning. 90 tablet 3 lisinopril 2.5 mg tablet Take 1 tablet (2.5 mg) by mouth in the morning. 90 tablet 3 spironolactone (Aldactone) 25 mg tablet Take 1 tablet (25 mg) by mouth in the morning. 90 tablet 3 No current facility-administered medications on file prior to visit. ROS: Review of Systems HENT: Positive for congestion. Respiratory: Positive for shortness of breath. Neurological: Positive for dizziness and light-headedness. All other systems reviewed and are negative. Physical Exam: Constitutional General Appearance: well-nourished, well-developed, appears stated age Level of Distress: comfortable Psychiatric Mental Status: alert, normal affect Orientation: oriented to time, place, and person Insight: good judgement Eyes Lids and Conjunctivae: non-injected, no xanthelasma ENMT Ears: no lesions on external ear Nose: no lesions on external nose Oropharynx: no cyanosis, no pallor Neck Neck: supple, trachea midline Carotid Arteries: bilateral normal upstroke, no bruits Jugular Veins: normal jugular venous pressure Thyroid: not enlarged Lungs Respiratory Effort: unlabored Chest Exam: normal curvature, no thoracic deformity Auscultation: clear, no wheezing, no rales, no rhonchi Cardiovascular Rate And Rhythm: regular Heart Sounds: normal S1, normal s2, no gallop Systolic Murmur: not heard Diastolic Murmur: not heard Extremities: no cyanosis, no edema, no peripheral signs of emboli Peripheral Pulses Radial Pulse: normal Abdomen Inspection and Palpation: soft, non distended, no bruit, non tender Musculoskeletal Inspection: no joint swelling Neurologic Gait: normal gait Skin Inspection and Palpation: warm and dry Nails: no clubbing Labs: @LABRESULTS@ No results found for: CHOLESTEROL TOTAL, HDL, LDL CALC, LDL DIRECT, TRIGLYCERIDES, TSH, T3 TOTAL, T4 TOTAL, THYROID PEROXIDASE AB, BNP, BNP, BNP EKG: Encounter Date: 04/09/23 ECG 12 lead Result Value Ventricular Rate 84 Atrial Rate 84 OK Interval 230 QRS DURATION 96 QT Interval 378 QTC CALCULATION(BAZETT) 446 P Rialto 39 R-Rialto -3 T Wave Rialto 15 Impression Sinus rhythm with 1st degree A-V block with occasional Premature ventricular complexes and Premature atrial complexes Otherwise normal ECG When com (more content not included)... [facility] 07-28-2023 Note Patient here for H&P prior to afib ablation, scheduled on 08/[address] Lisa. He is scheduled for CT chest and echo on 07/30 at [facility]. Denies chest pain and bleeding on Eliquis. Review of Systems Cardiovascular: Positive for dyspnea on exertion. Neurological: Positive for light-headedness (upon standing up). All other systems reviewed and are negative. [facility] 07-07-2023 Note [facility] Consult Note Reason for visit: Afib/ CMP HPI: Walter Dent is a 52 y.o. year old with past medical history of Afib with Atrial fibrillation with associated cardiomyopathy which has improved to.30 to 35%, with LA severely dilated and right atrium mildly dilated. he was seen by Keily PIKE and started on amiodarone on which she converted to sinus rhythm. he has felt much better since then and today's pulse ox revealed seems to be in sinus rhythm. Cardioversion 04/09/2023 was without medication although was successfully converting patient to sinus rhythm but had reverted to A-fib. 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 he is awaiting a sleep apnea evaluation. PMH: Past Medical History: Diagnosis Date Abnormal ECG Arrhythmia Atrial fibrillation (CMS/HCC) CHF (congestive heart failure) (CMS/HCC) PSH: Past Surgical History: Procedure Laterality Date CHOLECYSTECTOMY HERNIA REPAIR KNEE SURGERY SH: Social Determinants of Health Tobacco Use: High Risk (07/07/2023) Patient History Smoking Tobacco Use: Every Day Smokeless Tobacco Use: Former Passive Exposure: Not on file Alcohol Use: Not on file Financial Resource Strain: Not on file Food Insecurity: Not on file Transportation Needs: Not on file Physical Activity: Not on file Stress: Not on file Social Connections: Not on file Intimate Partner Violence: Not on file Depression: Not on file Housing Stability: Not on file Allergies: No Known Allergies Weight: 100kg Visit Vitals BP 114/80 (BP Location: Left arm, Patient Position: Sitting, BP Cuff Size: Large adult) Pulse 72 Ht 1.702 m (5' 7 ) Wt 100 kg (221 lb) SpO2 98% BMI 34.61 kg/m??? Smoking Status Every Day BSA 2.17 m??? Meds: Current Outpatient Medications on File Prior to Visit Medication Sig Dispense Refill amiodarone (Pacerone) 200 mg tablet Take 2 tablets (400 mg) by mouth in the morning and at bedtime for 14 days, THEN 1 tablet (200 mg) in the morning. 236 tablet 0 carvedilol (Coreg) 6.25 mg tablet Take 1 tablet (6.25 mg) by mouth with breakfast and with evening meal. 180 tablet 3 Eliquis 5 mg tablet Take 1 tablet (5 mg) by mouth in the morning and at bedtime. 180 tablet 3 empagliflozin (Jardiance) 10 mg Take 1 tablet (10 mg) by mouth in the morning. 90 tablet 3 lisinopril 2.5 mg tablet Take 1 tablet (2.5 mg) by mouth in the morning. 90 tablet 3 spironolactone (Aldactone) 25 mg tablet Take 1 tablet (25 mg) by mouth in the morning. 90 tablet 3 No current facility-administered medications on file prior to visit. ROS: Review of Systems HENT: Positive for congestion. Respiratory: Positive for shortness of breath. Neurological: Positive for dizziness and light-headedness. All other systems reviewed and are negative. Physical Exam: Constitutional General Appearance: well-nourished, well-developed, appears stated age Level of Distress: comfortable Psychiatric Mental Status: alert, normal affect Orientation: oriented to time, place, and person Insight: good judgement Eyes Lids and Conjunctivae: non-injected, no xanthelasma ENMT Ears: no lesions on external ear Nose: no lesions on external nose Oropharynx: no cyanosis, no pallor Neck Neck: supple, trachea midline Carotid Arteries: bilateral normal upstroke, no bruits Jugular Veins: normal jugular venous pressure Thyroid: not enlarged Lungs Respiratory Effort: unlabored Chest Exam: normal curvature, no thoracic deformity Auscultation: clear, no wheezing, no rales, no rhonchi Cardiovascular Rate And Rhythm: regular Heart Sounds: normal S1, normal s2, no gallop Systolic Murmur: not heard Diastolic Murmur: not heard Extremities: no cyanosis, no edema, no peripheral signs of emboli Peripheral Pulses Radial Pulse: normal Abdomen Inspection and Palpation: soft, non distended, no bruit, non tender Musculoskeletal Inspection: no joint swelling Neurologic Gait: normal gait Skin Inspection and Palpation: warm and dry Nails: no clubbing Labs: @LABRESULTS@ No results found for: CHOLESTEROL TOTAL, HDL, LDL CALC, LDL DIRECT, TRIGLYCERIDES, TSH, T3 TOTAL, T4 TOTAL, THYROID PEROXIDASE AB, BNP, BNP, BNP EKG: Encounter Date: 04/09/23 ECG 12 lead Result Value Ventricular Rate 84 Atrial Rate 84 OK Interval 230 QRS DURATION 96 QT Interval 378 QTC CALCULATION(BAZETT) 446 P Rialto 39 R-Rialto -3 T Wave Rialto 15 Impression Sinus rhythm with 1st degree A-V block with occasional Premature ventricular complexes and Premature atrial complexes Otherwise normal ECG When compared with ECG of 09-APR-2023 12:20, (unconfirmed) Premature atrial complexes are now Present Confirmed by Cheyenne EASLEY, L.S. (2) on 04/09/2023 2:12:55 PM Echo: Stress test: Coronary angiogram: @CAT (more content not included)... [facility] Summary Purpose Family History No Family History Records FoundNo Family History Records Found Advance Directives No Advanced Directives Records FoundNo Advanced Directives Records Found Additional Source Comments (unrecognized sect ion and content) No Status Records FoundNo Status Records Found INFORMATION SOURCE (unrecogn ized section and content) DATE CREATED AUTHOR 04/05/2023 [facility] DATE CREATED AUTHOR AUTHOR'S ORGANIZ ATION 06/09/2024 [facility] FOR RECORDS PERTAINING TO PATIENTS WHO ARE OR HAVE BEEN ENROLLED IN A CHEMICAL DEPENDENCY/SUBSTANCEABUSE PROGRAM, SOME INFORMATION MAY BE OMITTED. This clinical summary was aggregated from multiple sources. Caution should be exercised in using it in the provision of clinical care. This summary normalizes information from multiple sources, and as a consequence, information in this document may materially change the coding, format and clinical context of patient data. In addition, data may be omitted in some cases. CLINICAL DECISIONS SHOULD BE BASED ON THE PRIMARY CLINICAL RECORDS. [facility] [employer] [facility]. provides no warranty or guarantee of the accuracy or completeness of information in this document.
--- NOTE | 2024-10-12 11:18 | ECG_ITS ---
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
[2024-10-12 11:25] LABS: Basophils Percent Auto 0.5 % (0.2-2.0); Eosinophils Absolute Auto 0.3 10^3/uL (0.0-0.7); Eosinophils Percent Auto 4.3 % (0.9-7.0); Hematocrit 50.7 % (42.0-54.0); Hemoglobin 17.3 g/dL (14.0-18.0); Immature Granulocytes Abs Auto 0.02 10^3/uL (0.00-0.03); Immature Granulocytes Pct Auto 0.3 % (0.0-0.5); Lymphocytes Percent Auto 30.9 % (20.5-60.0); Mean Corpuscular HGB Conc 34.1 g/dL (29.9-35.2); Mean Corpuscular Hemoglobin 30.3 pg (25.9-34.0); Mean Corpuscular Volume 88.8 fL (80.0-94.0); Mean Platelet Volume 10.2 fL (9.5-13.5); Monocytes Absolute Auto 0.6 10^3/uL (0.3-0.8); Monocytes Percent Auto 9.1 % (1.7-12.0); Neutrophils Absolute Auto 3.6 10^3/uL (1.4-6.5); Neutrophils Percent Auto 54.9 % (43.0-75.0); Platelet Count 161 10^3/uL (150-450); Red Blood Count 5.71 10^6/uL (4.70-6.10); Red Cell Distribution Width 12.4 % (11.0-15.0); White Blood Count 6.6 10^3/uL (4.0-11.0)
--- NOTE | 2024-10-12 11:32 | ED.GENADUL1 ---
HPI HPI - General Adult General Chief complaint: Dizziness Stated complaint: dizziness Time Seen by Provider: 10/12/24 10:18 Source: patient Mode of arrival: walk-in Limitations: no limitations History of Present Illness HPI narrative: Patient presents to ED complaining of lightheadedness. He states when he got up today he just started feeling lightheaded. He felt like this 1 time in the past when he had A-fib. He had an ablation about 2 years ago for his A-fib and to his knowledge he has never been back in A-fib treated his issue. He has a follow-up appointment with his public relations professional next week for his yearly checkup. He denies any chest pain or shortness of breath. He denies any leg swelling or pain. He does have some frontal head pressure and sinus pressure. Earlier in the week he had some pressure in his ears but that has resolved. He denies any known sick contacts. No fevers. Related Data Home Medications ?Medication ?Instructions ?Recorded ?Confirmed apixaban 5 mg tablet (Eliquis) 5 mg PO BID 10/12/24 10/12/24 carvedilol 6.25 mg tablet 6.25 mg PO BID 10/12/24 10/12/24 lisinopril 2.5 mg tablet 2.5 mg PO DAILY 10/12/24 10/12/24 Allergies Allergy/AdvReac Type Severity Reaction Status Date / Time No Known Drug Allergies Allergy Verified 10/12/24 10:25 Opioid HPI Opioid Management Most Recent Opioid Data: No Data to Display Review of Systems ROS Status of ROS 10 or more systems reviewed and unremarkable except as noted in history and below PFSH PFSH Medical History (Updated 10/12/24 @ 12:12 by Elizabeth Jose DO) Hypertension ?I10 - Essential (primary) hypertension (ICD-10) Umbilical hernia ?K42.9 - Umbilical hernia without obstruction or gangrene (ICD-10) Atrial fibrillation ?I48.91 - Unspecified atrial fibrillation (ICD-10) Surgical History (Updated 10/12/24 @ 10:31 by Mari Wrigth RN) H/O cardiac radiofrequency ablation ?Z98.890 - Other specified postprocedural states (ICD-10) History of cholecystectomy ?Z90.49 - Acquired absence of other specified parts of digestive tract (ICD-10) Social History Little interest or pleasure in doing things: not at all Feeling down, depressed, or hopeless: not at all Exam Narrative Exam Narrative: Time Seen: [] Vital Signs: [Per nurse's notes.] General: [Alert] Skin: [Warm, dry, no rash.] Head: [Normocephalic, atraumatic.] Neck: [Supple, trachea midline.] Eye: [Pupils are equal, round and reactive to light, extraocular movements are intact, normal conjunctiva.] Ears, nose, mouth and throat: oral mucosa moist. Cardiovascular: [Regular rate and rhythm, no murmur.] Respiratory: [Lungs are clear to auscultation, respirations are non-labored, breath sounds are equal.] Chest wall: [No tenderness, no deformity.] Gastrointestinal: [Soft, nontender, non distended, normal bowel sounds.] MSK: 5 out of 5 muscle strength x 4 extremities no calf pain or edema Lymphatics: [No lymphadenopathy.] Psychiatric: [Cooperative, appropriate mood & affect.] Neurological: [Alert and oriented to person, place, time, and situation, no focal neurological deficit observed.] Constitutional Vital Signs, click to edit/add: Last Vital Signs Temp 97.5 F L 10/12/24 10:25 Pulse 82 10/12/24 10:25 Resp 18 10/12/24 10:25 BP 135/97 H 10/12/24 10:25 Pulse Ox 100 10/12/24 10:25 O2 Del Method Room Air 10/12/24 10:25 Course Vital Signs Vital signs: Vital Signs Temperature 97.5 F L 10/12/24 10:25 Pulse Rate 82 10/12/24 10:25 Respiratory Rate 18 10/12/24 10:25 Blood Pressure 135/97 H 10/12/24 10:25 Pulse Oximetry 100 10/12/24 10:25 Oxygen Delivery Method Room Air 10/12/24 10:25 Temperature 97.5 F L 10/12/24 10:25 Pulse Rate 82 10/12/24 10:25 Respiratory Rate 18 10/12/24 10:25 Blood Pressure 135/97 H 10/12/24 10:25 Pulse Oximetry 100 10/12/24 10:25 Oxygen Delivery Method Room Air 10/12/24 10:25 Medical Decision Making MDM Narrative Medical decision making narrative: Labs are negative for acute findings. Blood pressure and heart rate are stable. Patient states he is feeling slightly better. Given the fact that he had some ear pressure earlier in the week and some frontal head pressure today with this lightheadedness this may be of a viral syndrome or something of that nature causing the lightheadedness. I do not see any indication for CT brain at this point and no indication for admission at this point. He does have a follow-up appointment on Thursday with his heart doctor. Return to ED if worsening symptoms throughout the weekend otherwise follow-up outpatient as scheduled. Patient is comfortable with care plan for home. Differential Diagnosis Differential Diagnosis: Electrolyte abnormality, viral syndrome, cardiac arrhythmia Medical Records Medical records reviewed: Yes I reviewed the patient's medical records Lab Data Lab results reviewed: Yes I reviewed the patient's lab results Labs: Lab Results 10/12/24 Range/Units 10:43 WBC 6.6 (4.0-11.0) 10^3/uL RBC 5.71 (4.70-6.10) 10^6/uL Hgb 17.3 (14.0-18.0) g/dL Hct 50.7 (42.0-54.0) % MCV 88.8 (80.0-94.0) fL MCH 30.3 (25.9-34.0) pg MCHC 34.1 (29.9-35.2) g/dL RDW 12.4 (11.0-15.0) % Plt Count 161 (150-450) 10^3/uL MPV 10.2 (9.5-13.5) fL Neut % (Auto) 54.9 (43.0-75.0) % Lymph % (Auto) 30.9 (20.5-60.0) % [place] % (Auto) 9.1 (1.7-12.0) % Eos % (Auto) 4.3 (0.9-7.0) % Baso % (Auto) 0.5 (0.2-2.0) % Neut # (Auto) 3.6 (1.4-6.5) 10^3/uL Lymph # (Auto) 2.0 (1.2-3.8) 10^3/uL [place] # (Auto) 0.6 (0.3-0.8) 10^3/uL Eos # (Auto) 0.3 (0.0-0.7) 10^3/uL Baso # (Auto) 0.0 (0.0-0.1) 10^3/uL Abs Immat Gran (auto) 0.02 (0.00-0.03) 10^3/uL Imm/Tot Granulo (auto) 0.3 (0.0-0.5) % Sodium 143 (136-145) mmol/L Potassium 4.1 (3.5-5.1) mmol/L Chloride 107 (98-107) mmol/L Carbon Dioxide 24.4 (21.0-32.0) mmol/L Anion Gap 15.7 BUN 12.0 (7.0-18.0) mg/dL Creatinine 0.82 (0.70-1.30) mg/dL Est GFR ( Amer) >60 (>=60 mL/min/1.73m^2) Est GFR (Non-Af Amer) >60 (>=60 mL/min/1.73m^2) BUN/Creatinine Ratio 14.6 Glucose 92 (74-106) mg/dL Calcium 8.9 (8.5-10.1) mg/dL Total Bilirubin 0.6 (0.2-1.0) mg/dL AST 15 (15-37) U/L ALT 26 (16-63) U/L Alkaline Phosphatase 71 (46-116) U/L Troponin I High Sens 4.6 (4.0-76.1) pg/mL Total Protein 6.7 (6.4-8.2) g/dL Albumin 3.5 (3.4-5.0) g/dL Globulin 3.2 g/dL Albumin/Globulin Ratio 1.1 ECG Data Attestation: I personally reviewed and interpreted this ECG as follows: Interpretation: EKG INTERPRETATION Time: [] 1035 Rate: [] 80 Rhythm: _ [] Sinus rhythm ST segments: _ [] No acute ST elevation or depression T waves: _ [] Ectopy: _ [] P wave/MT interval: _ [] QRS interval: _ [] QT interval: _ [] Comparison: _ [] Comparison EKG date: [] Performed by: [self] Discharge Plan Discharge Chief Complaint: Dizziness Clinical Impression: Feeling light headed Patient Disposition: Home, Self-Care Time of Disposition Decision: 12:12 Condition: Good Mode of Transportation: Private Vehicle Prescriptions / Home Meds: No Action Eliquis 5 mg tablet 5 mg PO BID carvedilol 6.25 mg tablet 6.25 mg PO BID lisinopril 2.5 mg tablet 2.5 mg PO DAILY Print Language: Belarusian Instructions: Lightheadedness (ED) Referrals: Padmini Mcneal NP [Primary Care Provider] - 1 week
[2024-10-12 11:48] LABS: Alanine Aminotransferase 26 U/L (16-63); Albumin Globulin Ratio 1.1; Albumin Level 3.5 g/dL (3.4-5.0); Alkaline Phosphatase 71 U/L (46-116); Anion Gap 15.7; Aspartate Amino Transferase 15 U/L (15-37); BUN Creatinine Ratio 14.6; Bilirubin Total 0.6 mg/dL (0.2-1.0); Calcium 8.9 mg/dL (8.5-10.1); Carbon Dioxide 24.4 mmol/L (21.0-32.0); Chloride 107 mmol/L (98-107); Estimated GFR (African America >60 (>=60 mL/min/1.73m^2); Estimated GFR (Non-African Ame >60 (>=60 mL/min/1.73m^2); Globulin 3.2 g/dL; Glucose 92 mg/dL (74-106); Potassium 4.1 mmol/L (3.5-5.1); Sodium 143 mmol/L (136-145); Total Protein 6.7 g/dL (6.4-8.2); Troponin I High Sensitivity 4.6 pg/mL (4.0-76.1)
== END 2024-10-12 12:19 | disposition home or self-care (01) ==
PROVIDERS: Emergency Provider Emergency Medicine; PCP Nurse Practitioner Family
DX: R42 Dizziness and giddiness (principal); Z90.49 Acquired absence of other specified parts of digestive tract
CPT/HCPCS: 36415; 80053; 84484; 85025; 93005; 99284